=== PATIENT | female | born 1940 | race Caucasian/White ===

== ENCOUNTER → 2016-03-08 | Outpatient (CLI) | payer MEDICARE, OTHER ==
[~2016-03-08] MED LIST: ALL100T PO; AMIO100T3 PO; ASPI81TA13 PO; ATOR10TA52 PO; INSLISPI SC; INSUINJ32 SC; LEVO75TA6 PO; METO25TA62 PO; SPIR25TA89 PO; TEMA15CA PO; WARF1TAB36 PO
[2016-03-08 13:11] LABS: BUN/Creatinine Ratio 16.1; Calcium 9.6 mg/dL (8.5-10.1)
[2016-03-08 13:44] LABS: Potassium 5.8 mmol/L (3.5-5.1)
== END | disposition home or self-care (01) ==
LOC: LAB 12:16
PROVIDERS: ATTEND Internal Medicine
DX: N18.4 Chronic kidney disease, stage 4 (severe) (principal)
CPT/HCPCS: 36415; 80048

== ENCOUNTER 2016-03-09 18:36 | Inpatient (IN) | payer MEDICARE, OTHER ==
[~2016-03-09] VITALS: Ht 154.9 cm; Wt 60.5 kg
[~2016-03-09 18:36] MED LIST changes: -ALLO100T PO
[2016-03-09 19:39] LABS: Basophils # (auto) 0 uL; Basophils % (auto) 0.2 % (0.0-2.0); DEFINITIVE VIEW TRANSMISSION; Eosinophils # (auto) 0.1 uL; Eosinophils % (auto) 1.7 % (0.0-7.0); Hematocrit 40.2 % (36.0-46.0); Lymphocytes % (auto) 12.8 % (10.0-50.0); Mean Corpuscular Hgb Conc. 32.4 g/dL (32.0-36.0); Mean Corpuscular Volume 104.9 fL (80.0-100.0); Mean Platelet Volume 8.9 fL (7.4-10.4); Monocytes # (auto) 0.8 uL; Monocytes % (auto) 9.9 % (0.0-12.0); Neutrophils # (auto) 6.1 uL; Neutrophils % (auto) 75.4 % (37.0-80.0); Platelet Count (auto) 348 10^3/uL (140-450); Red Cell Distribution Width 17.7 % (11.6-16.0); White Blood Cell 8.1 10^3/uL (4.4-10.8)
[2016-03-09 19:51] LABS: Albumin 3.5 g/dL (3.4-5.0); BUN/Creatinine Ratio 16.8; Calcium 8.8 mg/dL (8.5-10.1)
[2016-03-09 19:53] LABS: Bilirubin, Total 0.5 mg/dL (0.2-1.0); Total Protein 7.8 g/dL (6.4-8.2)
[2016-03-09 19:59] LABS: Potassium 5.8 mmol/L (3.5-5.1)
[2016-03-09 20:11] LABS: Macrocytosis Slight; Platelet Estimate Adequate
[2016-03-09] MEDS ORDERED: SODIUM BICARBONATE 8.4% INJ 50ML SYRINGE IV ONE (22:00)
[2016-03-09] MEDS ORDERED: InsuLIN REG 1unit/0.01ml Soln (100units/ml) IV ONE (22:00)
[2016-03-09] MEDS ORDERED: SODIUM POLYSTYRENE SULF 15GM/60ML SUSP PO ONE (22:00)
[2016-03-09] MEDS ORDERED: DEXTROSE (50%) 50ML SYRG IV ONE (22:00)
[2016-03-09] MEDS ORDERED: ALBUTEROL SULF 2.5 MG/0.5ML(0.5%) NEB SOLN NEB ONE (22:00)
[2016-03-09] MEDS ORDERED: ALLO100T PO (22:59)
[2016-03-09] MEDS ORDERED: LEVO75TA6 PO (23:01)
[2016-03-09] MEDS ORDERED: SPIR25TA89 PO (23:02)
[2016-03-09] MEDS ORDERED: LACTULOSE 20Gm/30ML SOLN PO PRN (23:30)
[2016-03-09] MEDS ORDERED: TEMAZEPAM 15 MG CAP PO PRN (23:30)
[2016-03-09] MEDS ORDERED: DEXTROSE (50%) 50ML SYRG IV PRN (23:30)
[2016-03-09] MEDS: SODIUM CHLORIDE 0.9% 1,000 ML IV SCH (23:55)
[2016-03-09] MEDS: InsuLIN REG 1unit/0.01ml Soln (100units/ml) SC SCH (23:56)
[2016-03-10] VITALS (7 sets, daily range): BP systolic 109–146; BP diastolic 46–85
[2016-03-10] MEDS: ACCU-CHEK COMFORT CURVE STRIP VI SCH ×3 (00:03→12:35)
[2016-03-10] MEDS: InsuLIN REG 1unit/0.01ml Soln (100units/ml) SC SCH ×2 (05:58→12:00)
[2016-03-10 06:08] LABS: Basophils # (auto) 0 uL; Basophils % (auto) 0.2 % (0.0-2.0); DEFINITIVE VIEW TRANSMISSION; Eosinophils # (auto) 0 uL; Eosinophils % (auto) 0.7 % (0.0-7.0); Hematocrit 35.4 % (36.0-46.0); Hemoglobin 11.3 g/dL (12.2-16.2); Lymphocytes # (auto) 0.5 uL; Lymphocytes % (auto) 9.9 % (10.0-50.0); Mean Corpuscular Hemoglobin 33.5 pg (28.0-32.0); Mean Corpuscular Hgb Conc. 31.9 g/dL (32.0-36.0); Mean Corpuscular Volume 104.8 fL (80.0-100.0); Mean Platelet Volume 8.7 fL (7.4-10.4); Monocytes # (auto) 0.8 uL; Monocytes % (auto) 14.5 % (0.0-12.0); Neutrophils % (auto) 74.7 % (37.0-80.0); Platelet Count (auto) 305 10^3/uL (140-450); Red Cell Distribution Width 17.8 % (11.6-16.0); White Blood Cell 5.4 10^3/uL (4.4-10.8)
[2016-03-10 06:29] LABS: Partial Thromboplastin Time 39.9 sec (22.64-33.71)
[2016-03-10 06:32] LABS: Albumin 2.8 g/dL (3.4-5.0); BUN/Creatinine Ratio 17.6; Calcium 7.9 mg/dL (8.5-10.1); Potassium 4.3 mmol/L (3.5-5.1)
[2016-03-10 06:32] LABS: INR 2.46 (0.9-1.15); Prothrombin Time 25.3 sec (9.37-12.3)
[2016-03-10 06:35] LABS: Bilirubin, Total 0.4 mg/dL (0.2-1.0); Total Protein 6.2 g/dL (6.4-8.2)
[2016-03-10] MEDS ORDERED: LEVOTHYROXINE SODIUM 25 MCG TAB PO SCH (07:00)
[2016-03-10] MEDS ORDERED: ASPirin 81 mg TAB PO SCH (10:00)
[2016-03-10] MEDS ORDERED: ENOXAPARIN SOD 30 MG/0.3 ML SYRINGE SC SCH (10:00)
[2016-03-10] MEDS ORDERED: AMIODARONE HCL 200 MG TAB PO SCH (10:00)
[2016-03-10] MEDS ORDERED: PANTOPRAZOLE SODIUM 40 MG/10 ML VIAL IV SCH (10:00)
[2016-03-10] MEDS ORDERED: SPIRONOLACTONE 25 MG TAB PO SCH (10:00)
[2016-03-10] MEDS ORDERED: ALLOPURINOL 100 MG TAB PO SCH (10:00)
[2016-03-10] MEDS ORDERED: METOPROLOL TARTRATE 25 MG TAB PO SCH (10:00)
[2016-03-10] MEDS: SODIUM CHLORIDE 0.9% 1,000 ML IV SCH (12:35)
[2016-03-10] MEDS ORDERED: WARFARIN SODIUM 1 MG TAB PO SCH (17:00)
[2016-03-10] MEDS ORDERED: ATORVASTATIN 20 MG TAB PO SCH (22:00)
== END 2016-03-10 17:15 | disposition home or self-care (01) | DRG 640 ==
LOC: ER 18:38 → TELE 18:39 → TELE-WESTW 18:40
PROVIDERS: ADMIT Family Medicine; ATTEND Internal Medicine Pulmonary Disease
DX: E87.5 Hyperkalemia (principal); N17.0 Acute kidney failure with tubular necrosis; I13.0 Hypertensive heart and chronic kidney disease with heart failure and stage 1 through stage 4 chronic kidney disease, or unspecified chronic kidney disease; N18.4 Chronic kidney disease, stage 4 (severe); E87.1 Hypo-osmolality and hyponatremia; I25.10 Atherosclerotic heart disease of native coronary artery without angina pectoris; I50.9 Heart failure, unspecified; E11.22 Type 2 diabetes mellitus with diabetic chronic kidney disease; E11.65 Type 2 diabetes mellitus with hyperglycemia; E78.5 Hyperlipidemia, unspecified; E03.9 Hypothyroidism, unspecified; Z88.8 Allergy status to other drugs, medicaments and biological substances; Z88.0 Allergy status to penicillin; Z88.6 Allergy status to analgesic agent; Z88.2 Allergy status to sulfonamides; Z95.1 Presence of aortocoronary bypass graft; I25.2 Old myocardial infarction; Z90.710 Acquired absence of both cervix and uterus; Z87.440 Personal history of urinary (tract) infections; Z82.5 Family history of asthma and other chronic lower respiratory diseases; Z79.4 Long term (current) use of insulin; Z95.5 Presence of coronary angioplasty implant and graft
CPT/HCPCS: 36415; 80048; 80053; 82962; 83036; 85025; 85049; 85610; 85730; 93005; 94640; 96374; 96375; C9113; J1815

== ENCOUNTER → 2016-03-09 | Outpatient (CLI) | payer MEDICARE, OTHER ==
[~2016-03-09] MED LIST changes: +ALLO100T PO
[2016-03-09 12:59] LABS: BUN/Creatinine Ratio 17.4; Calcium 9.6 mg/dL (8.5-10.1)
[2016-03-09 13:29] LABS: Potassium 5.6 mmol/L (3.5-5.1)
== END | disposition home or self-care (01) ==
LOC: LAB 11:35
PROVIDERS: ATTEND Internal Medicine
DX: N18.4 Chronic kidney disease, stage 4 (severe) (principal); N39.0 Urinary tract infection, site not specified
CPT/HCPCS: 36415; 80048

== ENCOUNTER → 2016-03-15 | Outpatient (CLI) | payer MEDICARE, OTHER ==
[~2016-03-15] MED LIST changes: -ALL100T PO; +ALLO100T PO; -SPIR25TA89 PO
[2016-03-15 12:16] LABS: BUN/Creatinine Ratio 19.1; Calcium 9.2 mg/dL (8.5-10.1); Potassium 4.7 mmol/L (3.5-5.1)
== END | disposition home or self-care (01) ==
LOC: LAB 11:24
PROVIDERS: ATTEND Internal Medicine Pulmonary Disease
DX: Z00.00 Encounter for general adult medical examination without abnormal findings (principal)
CPT/HCPCS: 36415; 80048

== ENCOUNTER → 2016-06-06 | Outpatient (CLI) | payer MEDICARE, OTHER ==
[2016-06-06 11:10] LABS: Basophils # (auto) 0 uL; Basophils % (auto) 0.4 % (0.0-2.0); DEFINITIVE VIEW TRANSMISSION; Eosinophils # (auto) 0.1 uL; Eosinophils % (auto) 1.9 % (0.0-7.0); Hematocrit 44.1 % (36.0-46.0); Hemoglobin 14.6 g/dL (12.2-16.2); Lymphocytes % (auto) 14.8 % (10.0-50.0); Mean Corpuscular Hemoglobin 34.3 pg (28.0-32.0); Mean Corpuscular Volume 103.9 fL (80.0-100.0); Mean Platelet Volume 9.1 fL (7.4-10.4); Monocytes # (auto) 0.7 uL; Monocytes % (auto) 10.5 % (0.0-12.0); Neutrophils # (auto) 4.7 uL; Neutrophils % (auto) 72.4 % (37.0-80.0); Platelet Count (auto) 242 10^3/uL (140-450); Red Cell Distribution Width 15.4 % (11.6-16.0); White Blood Cell 6.5 10^3/uL (4.4-10.8)
[2016-06-06 11:39] LABS: Albumin 3.7 g/dL (3.4-5.0); BUN/Creatinine Ratio 23.6; Bilirubin, Total 0.4 mg/dL (0.2-1.0); Calcium 9.2 mg/dL (8.5-10.1); Magnesium 1.8 mg/dL (1.6-2.6); Phosphorus 3.5 mg/dL (2.5-4.90); Potassium 5.4 mmol/L (3.5-5.1); Total Protein 7.1 g/dL (6.4-8.2); Uric Acid 5.1 mg/dL (2.6-6.0)
[2016-06-06 12:22] LABS: Urine Protein/Creatinine Ratio 0.43
== END | disposition home or self-care (01) ==
LOC: LAB 10:46
PROVIDERS: ATTEND Internal Medicine Nephrology
DX: N18.3 Chronic kidney disease, stage 3 (moderate) (principal); D63.1 Anemia in chronic kidney disease; E21.3 Hyperparathyroidism, unspecified; E78.5 Hyperlipidemia, unspecified; M10.9 Gout, unspecified; R80.9 Proteinuria, unspecified; E55.9 Vitamin D deficiency, unspecified
CPT/HCPCS: 36415; 80053; 80061; 82306; 82570; 83036; 83735; 84100; 84156; 84550; 85025

== ENCOUNTER → 2016-08-17 | Outpatient (CLI) | payer MEDICARE, OTHER ==
[2016-08-17 14:13] LABS: Urine Protein/Creatinine Ratio 1.06
[2016-08-17 14:16] LABS: BUN/Creatinine Ratio 23.5; Bilirubin, Total 0.7 mg/dL (0.2-1.0); Calcium 8.9 mg/dL (8.5-10.1); Magnesium 1.9 mg/dL (1.6-2.6); Phosphorus 3.3 mg/dL (2.5-4.90); Potassium 4.3 mmol/L (3.5-5.1); Total Protein 7.3 g/dL (6.4-8.2); Uric Acid 5.6 mg/dL (2.6-6.0)
== END | disposition home or self-care (01) ==
LOC: LAB 13:26
PROVIDERS: ATTEND Internal Medicine Nephrology
DX: N18.4 Chronic kidney disease, stage 4 (severe) (principal); E83.39 Other disorders of phosphorus metabolism; E21.3 Hyperparathyroidism, unspecified; R80.9 Proteinuria, unspecified; M10.9 Gout, unspecified; R53.83 Other fatigue
CPT/HCPCS: 36415; 80053; 82570; 82607; 83735; 84100; 84156; 84439; 84443; 84550

== ENCOUNTER → 2016-11-22 | Outpatient (CLI) | payer MEDICARE, OTHER ==
[2016-11-22 13:11] LABS: Albumin 3.6 g/dL (3.4-5.0); BUN/Creatinine Ratio 16.4; Calcium 8.9 mg/dL (8.5-10.1); Magnesium 1.8 mg/dL (1.6-2.6); Potassium 4.2 mmol/L (3.5-5.1)
[2016-11-22 13:13] LABS: Bilirubin, Total 0.5 mg/dL (0.2-1.0); Total Protein 6.4 g/dL (6.4-8.2)
[2016-11-22 13:42] LABS: Urine Protein/Creatinine Ratio 0.75
== END | disposition home or self-care (01) ==
LOC: LAB 12:25
PROVIDERS: ATTEND Internal Medicine Nephrology
DX: N18.3 Chronic kidney disease, stage 3 (moderate) (principal); D63.1 Anemia in chronic kidney disease; E21.3 Hyperparathyroidism, unspecified; R80.9 Proteinuria, unspecified
CPT/HCPCS: 36415; 80053; 82043; 82570; 83735; 83970; 84156

== ENCOUNTER → 2016-12-05 | Outpatient (CLI) | payer MEDICARE, OTHER | END | disposition home or self-care (01) | LOC: LAB 15:34 | PROVIDERS: ATTEND Internal Medicine | DX: E11.9 Type 2 diabetes mellitus without complications (principal); E03.9 Hypothyroidism, unspecified; K80.20 Calculus of gallbladder without cholecystitis without obstruction | CPT/HCPCS: 36415; 82607; 83036; 84439; 84443 ==

== ENCOUNTER 2016-12-06 15:12 | Inpatient (IN) | payer MEDICARE, OTHER ==
[~2016-12-06] VITALS: Ht 154.9 cm; Wt 70.9 kg
[2016-12-06 16:29] LABS: Albumin 3.7 g/dL (3.4-5.0); Alkaline Phosphatase 106 U/L (45-117); Anion Gap 7 (5-15); Aspartate Aminotransferase 29 U/L (15-37); BUN/Creatinine Ratio 19.8; Bilirubin, Total 0.7 mg/dL (0.2-1.0); Blood Urea Nitrogen 37 mg/dL (7-18); Calcium 8.6 mg/dL (8.5-10.1); Carbon Dioxide 26 mmol/L (21-32); Chloride 105 mmol/L (98-107); GFR African American 33 mL/min; GFR Non-African American 28 mL/min; Glucose 125 mg/dL (74-106); Magnesium 1.6 mg/dL (1.6-2.6); Potassium 3.9 mmol/L (3.5-5.1); Sodium 138 mmol/L (136-145); Total Protein 7.2 g/dL (6.4-8.2)
[2016-12-06 16:36] LABS: Basophils # (auto) 0 uL; Eosinophils # (auto) 0 uL; Eosinophils % (auto) 0.2 % (0.0-7.0); Lymphocytes # (auto) 0.3 uL; Monocytes # (auto) 0.6 uL; Neutrophils # (auto) 9.5 uL
[2016-12-06 16:39] LABS: Basophils % (auto) 0.2 % (0.0-2.0); Hematocrit 40.9 % (36.0-46.0); Hemoglobin 13.7 g/dL (12.2-16.2); Lymphocytes % (auto) 3.1 % (10.0-50.0); Mean Corpuscular Hemoglobin 35.8 pg (28.0-32.0); Mean Corpuscular Hgb Conc. 33.6 g/dL (32.0-36.0); Mean Corpuscular Volume 106.5 fL (80.0-100.0); Mean Platelet Volume 9.2 fL (6.9-10.8); Monocytes % (auto) 5.4 % (0.0-12.0); Neutrophils % (auto) 91.1 % (37.0-80.0); Nucleated Red Blood Cells % 0.1 %; Platelet Count (auto) 199 10^3/uL (140-450); Red Cell Distribution Width 16.1 % (11.8-14.3); White Blood Cell 10.5 10^3/uL (4.4-10.8)
[2016-12-06] MEDS ORDERED: SODIUM CHLORIDE 0.9% 1,000 ML IV ONE (17:06)
[2016-12-06 18:11] LABS: Urine Bilirubin Negative (Negative); Urine Blood 1+ /uL (Negative); Urine Color Yellow (Yellow); Urine Glucose Normal (Normal); Urine Ketone Negative (Negative); Urine Nitrite POSITIVE (Negative); Urine RBC 9 /hpf (0 - 4); Urine Squamous Epithelial Cell FEW /hpf (<5); Urine Urobilinogen Normal (Negative); Urine WBC Clumps PRESENT /hpf (None Seen); Urine pH 5.5 (5.0-8.0)
[2016-12-06] MEDS ORDERED: LEVOFLOXACIN 500MG 100 ML IV ONE (18:30)
[2016-12-06] MEDS ORDERED: cefTRIAXone 1GM/50ML D5W 50 ML IV ONE (18:30)
[2016-12-06 19:18] LABS: Macrocytosis Moderate; Platelet Estimate Adequate
[2016-12-06] MEDS: SODIUM CHLORIDE 0.9% 1,000 ML IV SCH (21:48)
[2016-12-06] MEDS ORDERED: DEXTROSE (50%) 50ML SYRG IV PRN ×2 (22:00)
[2016-12-06] MEDS ORDERED: LACTULOSE 20Gm/30ML SOLN PO PRN (22:00)
[2016-12-06] MEDS ORDERED: ACETAMINOPHEN/CODEINE#3 (300/30mg) TAB PO PRN (22:00)
[2016-12-06] MEDS ORDERED: MORPHINE SULF INJ 2 MG/ML SYRINGE 1ML IV PRN (22:00)
[2016-12-06] MEDS ORDERED: NITROGLYCERIN 0.4 MG SL TAB SL PRN (22:00)
[2016-12-06] MEDS: ATORVASTATIN 20 MG TAB PO SCH (22:00)
[2016-12-06] MEDS ORDERED: ONDANSETRON HCL 4 MG/2 ML VIAL IV ONE (23:30)
[2016-12-07] MEDS: ACCU-CHEK COMFORT CURVE STRIP VI SCH ×4 (00:40→18:41)
[2016-12-07] MEDS: InsuLIN REG 1unit/0.01ml Soln (100units/ml) SC SCH ×4 (00:40→18:00)
[2016-12-07] MEDS: SODIUM CHLORIDE 0.9% 1,000 ML IV SCH ×2 (05:58→14:10)
[2016-12-07 06:50] LABS: Basophils # (auto) 0 uL; Eosinophils # (auto) 0 uL; Hematocrit 36.7 % (36.0-46.0); Lymphocytes # (auto) 0.6 uL; Monocytes # (auto) 1.6 uL
[2016-12-07 06:57] LABS: Basophils % (auto) 0.2 % (0.0-2.0); Hemoglobin 12.1 g/dL (12.2-16.2); Lymphocytes % (auto) 3.5 % (10.0-50.0); Mean Corpuscular Hemoglobin 35.4 pg (28.0-32.0); Mean Corpuscular Hgb Conc. 32.9 g/dL (32.0-36.0); Mean Corpuscular Volume 107.7 fL (80.0-100.0); Mean Platelet Volume 9.9 fL (6.9-10.8); Monocytes % (auto) 9.1 % (0.0-12.0); Neutrophils # (auto) 15.1 uL; Neutrophils % (auto) 87.2 % (37.0-80.0); Platelet Count (auto) 164 10^3/uL (140-450); White Blood Cell 17.4 10^3/uL (4.4-10.8)
[2016-12-07 07:01] LABS: INR 2.56 (0.9-1.15); Partial Thromboplastin Time 47.2 sec (22.64-33.71); Prothrombin Time 28.2 sec (9.37-12.3)
[2016-12-07] MEDS: LEVOTHYROXINE SODIUM 25 MCG TAB PO SCH (07:13)
[2016-12-07 07:32] LABS: Albumin 2.8 g/dL (3.4-5.0); BUN/Creatinine Ratio 19.5; Bilirubin, Total 0.6 mg/dL (0.2-1.0); Calcium 8.3 mg/dL (8.5-10.1); Potassium 4.8 mmol/L (3.5-5.1); Total Protein 5.8 g/dL (6.4-8.2)
[2016-12-07] MEDS ORDERED: cefTRIAXone 1GM/50ML D5W 50 ML IV SCH (09:00)
[2016-12-07] MEDS ORDERED: LEVOFLOXACIN 250MG 50 ML IV SCH (10:00)
[2016-12-07] MEDS ORDERED: METOPROLOL TARTRATE 25 MG TAB PO ONE (10:00)
[2016-12-07] MEDS ORDERED: ENOXAPARIN SOD 30 MG/0.3 ML SYRINGE SC SCH (10:00)
[2016-12-07] MEDS: ASPirin 81 mg TAB PO SCH (10:23)
[2016-12-07] MEDS: PANTOPRAZOLE 40 MG/10 ML VIAL IV SCH (10:23)
[2016-12-07] MEDS: AMIODARONE HCL 200 MG TAB PO SCH (10:24)
[2016-12-07] MEDS: ALLOPURINOL 100 MG TAB PO SCH (10:24)
[2016-12-07] MEDS ORDERED: ERTAPENEM SOD INJ 1 GM in SODIUM CHL 0.9% 50 ML IV ONE (10:30)
[2016-12-07] MEDS ORDERED: ONDANSETRON HCL 4 MG/2 ML VIAL IV PRN (11:00)
[2016-12-07] MEDS: ERTAPENEM SOD INJ 0.5 GM in SODIUM CHL 0.9% 50 ML IV SCH (13:06)
[2016-12-07 13:22] LABS: Platelet Estimate Adequate
[2016-12-07 13:24] LABS: Macrocytosis Moderate; Ovalocytes FEW
[2016-12-07] MEDS ORDERED: WARFARIN SODIUM 1 MG TAB PO SCH (17:00)
[2016-12-07 17:20] VITALS: BP 135/59
[2016-12-07 20:00] VITALS: BP 102/54
[2016-12-07] MEDS: ATORVASTATIN 20 MG TAB PO SCH (22:03)
[2016-12-07] MEDS: TEMAZEPAM 15 MG CAP PO PRN (22:04)
[2016-12-07 22:14] VITALS: BP 102/54
[2016-12-08] MEDS: ACCU-CHEK COMFORT CURVE STRIP VI SCH ×4 (00:17→16:49)
[2016-12-08] MEDS: SODIUM CHLORIDE 0.9% 1,000 ML IV SCH ×3 (01:28→21:24)
[2016-12-08 05:37] VITALS: BP 114/44
[2016-12-08] MEDS: InsuLIN REG 1unit/0.01ml Soln (100units/ml) SC SCH ×4 (06:00→16:50)
[2016-12-08 06:11] LABS: Basophils # (auto) 0 uL; Eosinophils # (auto) 0.1 uL; Hemoglobin 11.4 g/dL (12.2-16.2); Lymphocytes # (auto) 0.6 uL; Red Cell Distribution Width 16.2 % (11.8-14.3); White Blood Cell 7.8 10^3/uL (4.4-10.8)
[2016-12-08] MEDS: LEVOTHYROXINE SODIUM 25 MCG TAB PO SCH (06:11)
[2016-12-08 06:14] LABS: Basophils % (auto) 0.4 % (0.0-2.0); Eosinophils % (auto) 0.8 % (0.0-7.0); Hematocrit 34.8 % (36.0-46.0); Lymphocytes % (auto) 7.5 % (10.0-50.0); Mean Corpuscular Hemoglobin 35.2 pg (28.0-32.0); Mean Corpuscular Hgb Conc. 32.8 g/dL (32.0-36.0); Mean Corpuscular Volume 107.4 fL (80.0-100.0); Mean Platelet Volume 9.7 fL (6.9-10.8); Monocytes # (auto) 0.8 uL; Monocytes % (auto) 10.5 % (0.0-12.0); Neutrophils # (auto) 6.3 uL; Neutrophils % (auto) 80.8 % (37.0-80.0); Nucleated Red Blood Cells % 0.1 %; Platelet Count (auto) 124 10^3/uL (140-450)
[2016-12-08 06:25] LABS: INR 2.44 (0.9-1.15); Partial Thromboplastin Time 44.9 sec (22.64-33.71); Prothrombin Time 26.8 sec (9.37-12.3)
[2016-12-08 06:32] LABS: Albumin 2.4 g/dL (3.4-5.0); Calcium 7.9 mg/dL (8.5-10.1); Potassium 4.3 mmol/L (3.5-5.1)
[2016-12-08 06:37] LABS: Bilirubin, Total 0.4 mg/dL (0.2-1.0)
[2016-12-08 09:00] VITALS: BP 150/68
[2016-12-08] MEDS ORDERED: ERTAPENEM SOD INJ 1 GM in SODIUM CHL 0.9% 50 ML IV SCH (10:00)
[2016-12-08] MEDS: PANTOPRAZOLE 40 MG/10 ML VIAL IV SCH (10:00)
[2016-12-08] MEDS: ERTAPENEM SOD INJ 0.5 GM in SODIUM CHL 0.9% 50 ML IV SCH (10:00)
[2016-12-08] MEDS: AMIODARONE HCL 200 MG TAB PO SCH (10:44)
[2016-12-08] MEDS: ASPirin 81 mg TAB PO SCH (10:46)
[2016-12-08] MEDS: ALLOPURINOL 100 MG TAB PO SCH (10:48)
[2016-12-08 13:00] VITALS: BP 123/63
[2016-12-08 17:00] VITALS: BP 139/62
[2016-12-08 20:46] VITALS: BP 135/62
[2016-12-08] MEDS: ATORVASTATIN 20 MG TAB PO SCH (21:19)
[2016-12-08] MEDS: TEMAZEPAM 15 MG CAP PO PRN (21:20)
[2016-12-09] MEDS: ACCU-CHEK COMFORT CURVE STRIP VI SCH ×5 (00:29→23:36)
[2016-12-09 05:00] VITALS: BP 112/56
[2016-12-09] MEDS: InsuLIN REG 1unit/0.01ml Soln (100units/ml) SC SCH ×5 (05:51→23:37)
[2016-12-09] MEDS: LEVOTHYROXINE SODIUM 25 MCG TAB PO SCH (06:03)
[2016-12-09 06:50] LABS: Albumin 2.5 g/dL (3.4-5.0); Bilirubin, Total 0.5 mg/dL (0.2-1.0); Phosphorus 2.9 mg/dL (2.5-4.90); Potassium 4.1 mmol/L (3.5-5.1); Total Protein 5.4 g/dL (6.4-8.2)
[2016-12-09 09:00] VITALS: BP 137/66
[2016-12-09] MEDS: ASPirin 81 mg TAB PO SCH (09:50)
[2016-12-09] MEDS: SODIUM CHLORIDE 0.9% 1,000 ML IV SCH (09:51)
[2016-12-09] MEDS: AMIODARONE HCL 200 MG TAB PO SCH (09:51)
[2016-12-09] MEDS: ALLOPURINOL 100 MG TAB PO SCH (09:51)
[2016-12-09] MEDS ORDERED: ENOXAPARIN SOD 100 MG/1 ML SYRINGE SC SCH (10:00)
[2016-12-09] MEDS: ERTAPENEM SOD INJ 0.5 GM in SODIUM CHL 0.9% 50 ML IV SCH (11:00)
[2016-12-09 12:29] VITALS: BP 130/60
[2016-12-09 16:40] VITALS: BP 120/66
[2016-12-09 21:30] VITALS: BP 154/66
[2016-12-09] MEDS: ATORVASTATIN 20 MG TAB PO SCH (21:49)
[2016-12-09] MEDS: TEMAZEPAM 15 MG CAP PO PRN (21:50)
[2016-12-10] MEDS: SODIUM CHLORIDE 0.9% 1,000 ML IV SCH ×2 (00:21→12:50)
[2016-12-10 05:00] VITALS: BP 118/53
[2016-12-10] MEDS: InsuLIN REG 1unit/0.01ml Soln (100units/ml) SC SCH ×4 (06:00→23:57)
[2016-12-10] MEDS: ACCU-CHEK COMFORT CURVE STRIP VI SCH ×4 (06:01→23:57)
[2016-12-10 06:23] LABS: INR 1.72 (0.9-1.15); Prothrombin Time 18.8 sec (9.37-12.3)
[2016-12-10] MEDS: LEVOTHYROXINE SODIUM 25 MCG TAB PO SCH (06:26)
[2016-12-10 09:00] VITALS: BP 117/46
[2016-12-10] MEDS: ASPirin 81 mg TAB PO SCH (10:03)
[2016-12-10] MEDS: AMIODARONE HCL 200 MG TAB PO SCH (10:04)
[2016-12-10] MEDS: ALLOPURINOL 100 MG TAB PO SCH (10:05)
[2016-12-10] MEDS ORDERED: ENOXAPARIN SOD 100 MG/1 ML SYRINGE SC ONE (10:15)
[2016-12-10] MEDS ORDERED: LIDOCAINE 1% HCL (LOCAL ANESTH.) INJ 20ML MDV ID ONE (12:30)
[2016-12-10] MEDS: ERTAPENEM SOD INJ 0.5 GM in SODIUM CHL 0.9% 50 ML IV SCH (12:50)
[2016-12-10 13:00] VITALS: BP 152/60
[2016-12-10 17:00] VITALS: BP 134/65
[2016-12-10] MEDS ORDERED: WARFARIN SODIUM 1 MG TAB PO SCH (17:00)
[2016-12-10] MEDS: SODIUM CHLOR 0.9% PF (SALINE LOCK) 10ML VIAL IV SCH (21:23)
[2016-12-10] MEDS: ATORVASTATIN 20 MG TAB PO SCH (21:24)
[2016-12-10] MEDS: TEMAZEPAM 15 MG CAP PO PRN (21:24)
[2016-12-10 22:00] VITALS: BP 147/76
[2016-12-11 05:00] VITALS: BP 104/48
[2016-12-11] MEDS: SODIUM CHLORIDE 0.9% 1,000 ML IV SCH (05:38)
[2016-12-11] MEDS: ACCU-CHEK COMFORT CURVE STRIP VI SCH ×3 (05:38→17:31)
[2016-12-11] MEDS: LEVOTHYROXINE SODIUM 25 MCG TAB PO SCH (05:39)
[2016-12-11] MEDS: InsuLIN REG 1unit/0.01ml Soln (100units/ml) SC SCH ×3 (05:46→17:31)
[2016-12-11 06:09] LABS: Albumin 2.6 g/dL (3.4-5.0); BUN/Creatinine Ratio 16.9; Bilirubin, Total 0.5 mg/dL (0.2-1.0); Calcium 8.1 mg/dL (8.5-10.1); Potassium 3.5 mmol/L (3.5-5.1); Total Protein 5.3 g/dL (6.4-8.2)
[2016-12-11 07:00] VITALS: BP 119/48
[2016-12-11 08:57] LABS: INR 1.53 (0.9-1.15); Partial Thromboplastin Time 34.5 sec (22.64-33.71); Prothrombin Time 16.7 sec (9.37-12.3)
[2016-12-11] MEDS: AMIODARONE HCL 200 MG TAB PO SCH (09:31)
[2016-12-11] MEDS: ALLOPURINOL 100 MG TAB PO SCH (09:31)
[2016-12-11] MEDS: SODIUM CHLOR 0.9% PF (SALINE LOCK) 10ML VIAL IV SCH ×2 (09:32→22:12)
[2016-12-11] MEDS: ASPirin 81 mg TAB PO SCH (09:32)
[2016-12-11 09:52] LABS: Basophils # (auto) 0 uL; Eosinophils # (auto) 0.1 uL; Eosinophils % (auto) 1.5 % (0.0-7.0); Hemoglobin 12.4 g/dL (12.2-16.2); Lymphocytes # (auto) 0.5 uL; Mean Corpuscular Volume 105.9 fL (80.0-100.0); Monocytes # (auto) 0.6 uL; White Blood Cell 4.2 10^3/uL (4.4-10.8)
[2016-12-11 09:53] LABS: Basophils % (auto) 0.6 % (0.0-2.0); Hematocrit 37.7 % (36.0-46.0); Lymphocytes % (auto) 12.2 % (10.0-50.0); Mean Corpuscular Hemoglobin 34.8 pg (28.0-32.0); Mean Corpuscular Hgb Conc. 32.9 g/dL (32.0-36.0); Mean Platelet Volume 9.2 fL (6.9-10.8); Monocytes % (auto) 14.2 % (0.0-12.0); Neutrophils % (auto) 71.5 % (37.0-80.0); Nucleated Red Blood Cells % 0.1 %; Platelet Count (auto) 145 10^3/uL (140-450)
[2016-12-11] MEDS ORDERED: ERTAPENEM SOD 1 GM INJ VIAL IM SCH (10:00)
[2016-12-11] MEDS ORDERED: ENOXAPARIN SOD 100 MG/1 ML SYRINGE SC SCH (10:00)
[2016-12-11 13:00] VITALS: BP 162/67
[2016-12-11 17:00] VITALS: BP 157/78
[2016-12-11] MEDS: WARFARIN SODIUM 1 MG TAB PO ONE ×2 (17:31→18:01)
[2016-12-11 22:00] VITALS: BP 138/64
[2016-12-11] MEDS: ATORVASTATIN 20 MG TAB PO SCH (22:30)
[2016-12-11] MEDS: TEMAZEPAM 15 MG CAP PO PRN (22:30)
[2016-12-12] MEDS: ACCU-CHEK COMFORT CURVE STRIP VI SCH ×2 (00:21→06:00)
[2016-12-12 05:00] VITALS: BP 128/65
[2016-12-12 05:43] LABS: Basophils # (auto) 0 uL; Eosinophils # (auto) 0.1 uL; Lymphocytes # (auto) 0.6 uL; Mean Corpuscular Volume 105.1 fL (80.0-100.0); Monocytes # (auto) 0.6 uL; Neutrophils # (auto) 2.7 uL
[2016-12-12 05:47] LABS: Basophils % (auto) 0.5 % (0.0-2.0); Eosinophils % (auto) 2.4 % (0.0-7.0); Hematocrit 35.4 % (36.0-46.0); Mean Corpuscular Hemoglobin 35.6 pg (28.0-32.0); Mean Corpuscular Hgb Conc. 33.9 g/dL (32.0-36.0); Mean Platelet Volume 9.1 fL (6.9-10.8); Monocytes % (auto) 15.4 % (0.0-12.0); Neutrophils % (auto) 67.7 % (37.0-80.0); Nucleated Red Blood Cells % 0.2 %; Platelet Count (auto) 138 10^3/uL (140-450); Red Cell Distribution Width 15.7 % (11.8-14.3)
[2016-12-12 05:54] LABS: INR 1.52 (0.9-1.15); Partial Thromboplastin Time 35.7 sec (22.64-33.71); Prothrombin Time 16.6 sec (9.37-12.3)
[2016-12-12] MEDS: InsuLIN REG 1unit/0.01ml Soln (100units/ml) SC SCH ×2 (06:00)
[2016-12-12 06:26] LABS: Albumin 2.5 g/dL (3.4-5.0); Bilirubin, Total 0.5 mg/dL (0.2-1.0); Potassium 3.3 mmol/L (3.5-5.1); Total Protein 5.3 g/dL (6.4-8.2)
[2016-12-12] MEDS: LEVOTHYROXINE SODIUM 25 MCG TAB PO SCH (07:45)
[2016-12-12 09:00] VITALS: BP 135/60
[2016-12-12] MEDS: SODIUM CHLOR 0.9% PF (SALINE LOCK) 10ML VIAL IV SCH (10:00)
[2016-12-12] MEDS ORDERED: POTASSIUM CHL 20 Meq TABLET PO SCH (10:30)
[2016-12-12] MEDS: ASPirin 81 mg TAB PO SCH (10:37)
[2016-12-12] MEDS: ALLOPURINOL 100 MG TAB PO SCH (10:38)
[2016-12-12] MEDS: AMIODARONE HCL 200 MG TAB PO SCH (10:38)
[2016-12-12 11:01] VITALS: BP 135/60
[2016-12-12] MEDS ORDERED: ERTAPENEM SOD INJ 1 GM in SODIUM CHL 0.9% 50 ML IV SCH (12:00)
[2016-12-12] MEDS ORDERED: WARFARIN SODIUM 2.5 MG TAB PO ONE (17:00)
== END 2016-12-12 11:35 | disposition home health service (06) | DRG 871 ==
LOC: ER 15:19 → TELE 15:20 → TELE-WESTW 12-07 17:02 → WEST WING 12-11 17:49
PROVIDERS: ADMIT Family Medicine; ATTEND Internal Medicine
PROC: 02HV33Z Insertion of Infusion Device into Superior Vena Cava, Percutaneous Approach (ICD-10-PCS; principal; 2016-12-10)
DX: A41.9 Sepsis, unspecified organism (principal); N17.0 Acute kidney failure with tubular necrosis; N18.4 Chronic kidney disease, stage 4 (severe); E11.22 Type 2 diabetes mellitus with diabetic chronic kidney disease; I48.0 Paroxysmal atrial fibrillation; D68.32 Hemorrhagic disorder due to extrinsic circulating anticoagulants; I13.0 Hypertensive heart and chronic kidney disease with heart failure and stage 1 through stage 4 chronic kidney disease, or unspecified chronic kidney disease; I50.42 Chronic combined systolic (congestive) and diastolic (congestive) heart failure; N12 Tubulo-interstitial nephritis, not specified as acute or chronic; I25.10 Atherosclerotic heart disease of native coronary artery without angina pectoris; B96.20 Unspecified Escherichia coli [E. coli] as the cause of diseases classified elsewhere; E03.9 Hypothyroidism, unspecified; E87.6 Hypokalemia; K44.9 Diaphragmatic hernia without obstruction or gangrene; K80.20 Calculus of gallbladder without cholecystitis without obstruction; T45.515A Adverse effect of anticoagulants, initial encounter; Z16.12 Extended spectrum beta lactamase (ESBL) resistance; Z79.4 Long term (current) use of insulin; Z87.440 Personal history of urinary (tract) infections; Z95.2 Presence of prosthetic heart valve; Z88.0 Allergy status to penicillin; Z88.8 Allergy status to other drugs, medicaments and biological substances; Z95.1 Presence of aortocoronary bypass graft; Z90.710 Acquired absence of both cervix and uterus; Z95.0 Presence of cardiac pacemaker
CPT/HCPCS: 36415; 36569; 71010; 74176; 80053; 80061; 81001; 82607; 82962; 83036; 83735; 84100; 84439; 84443; 84484; 85025; 85610; 85652; 85730; 87040; 87086; 87088; 87186; 93005; 96361; 96365; 96367; 96375; C9113; J0696; J1335; J1815; J1956; J2405

== ENCOUNTER → 2017-02-02 | Outpatient (CLI) | payer MEDICARE, OTHER, BC ==
[2017-02-02 15:05] LABS: Albumin 3.7 g/dL (3.4-5.0); BUN/Creatinine Ratio 19.3; Bilirubin, Total 0.6 mg/dL (0.2-1.0); Calcium 8.9 mg/dL (8.5-10.1); Potassium 4.6 mmol/L (3.5-5.1); Total Protein 7.4 g/dL (6.4-8.2); Uric Acid 4.8 mg/dL (2.6-6.0)
[2017-02-02 15:16] LABS: Basophils # (auto) 0 uL; Basophils % (auto) 0.7 % (0.0-2.0); Eosinophils # (auto) 0 uL; Eosinophils % (auto) 0.7 % (0.0-7.0); Hematocrit 45.6 % (36.0-46.0); Hemoglobin 14.7 g/dL (12.2-16.2); Lymphocytes # (auto) 0.9 uL; Lymphocytes % (auto) 14.2 % (10.0-50.0); Mean Corpuscular Hemoglobin 34.7 pg (28.0-32.0); Mean Corpuscular Hgb Conc. 32.3 g/dL (32.0-36.0); Mean Corpuscular Volume 107.5 fL (80.0-100.0); Mean Platelet Volume 9.5 fL (6.9-10.8); Monocytes # (auto) 0.6 uL; Monocytes % (auto) 8.7 % (0.0-12.0); Neutrophils # (auto) 4.9 uL; Neutrophils % (auto) 75.7 % (37.0-80.0); Nucleated Red Blood Cells % 0.1 %; Platelet Count (auto) 265 10^3/uL (140-450); Red Cell Distribution Width 17.7 % (11.8-14.3); White Blood Cell 6.5 10^3/uL (4.4-10.8)
== END | disposition home or self-care (01) ==
LOC: LAB 14:12
PROVIDERS: ATTEND Internal Medicine Nephrology
DX: E11.22 Type 2 diabetes mellitus with diabetic chronic kidney disease (principal); D63.1 Anemia in chronic kidney disease; N18.3 Chronic kidney disease, stage 3 (moderate); E55.9 Vitamin D deficiency, unspecified; E78.5 Hyperlipidemia, unspecified; M10.9 Gout, unspecified; N39.0 Urinary tract infection, site not specified; E21.3 Hyperparathyroidism, unspecified; R80.9 Proteinuria, unspecified
CPT/HCPCS: 36415; 80053; 83036; 83970; 84550; 85025

== ENCOUNTER → 2017-04-30 | Outpatient (CLI) | payer MEDICARE, OTHER ==
[2017-04-30 13:59] LABS: BUN/Creatinine Ratio 19.1; Bilirubin, Total 0.8 mg/dL (0.2-1.0); Magnesium 1.9 mg/dL (1.6-2.6); Potassium 3.9 mmol/L (3.5-5.1); Total Protein 7.2 g/dL (6.4-8.2); Uric Acid 5.9 mg/dL (2.6-6.0)
== END | disposition home or self-care (01) ==
LOC: LAB 12:00
PROVIDERS: ATTEND Internal Medicine Nephrology
DX: E11.22 Type 2 diabetes mellitus with diabetic chronic kidney disease (principal); E11.21 Type 2 diabetes mellitus with diabetic nephropathy; N18.3 Chronic kidney disease, stage 3 (moderate); M10.9 Gout, unspecified; E83.49 Other disorders of magnesium metabolism
CPT/HCPCS: 36415; 80053; 83036; 83735; 84550

== ENCOUNTER 2017-05-03 17:33 | Inpatient (IN) | payer MEDICARE, OTHER ==
[~2017-05-03] VITALS: Ht 154.9 cm; Wt 64.0 kg
[2017-05-03 18:45] LABS: Urine Bacteria NONE SEEN /hpf (None Seen); Urine Blood Negative /uL (Negative); Urine Specific Gravity 1.018 (1.001-1.035); Urine WBC 2 /hpf (0 - 5)
[2017-05-03 19:10] LABS: Basophils # (auto) 0.1 uL; Eosinophils # (auto) 0.7 uL; Hemoglobin 12.7 g/dL (12.2-16.2); Mean Corpuscular Volume 106.1 fL (80.0-100.0)
[2017-05-03] MEDS ORDERED: SODIUM CHLORIDE 0.9% 1,000 ML IV ONE (19:12)
[2017-05-03 19:13] LABS: Basophils % (auto) 1.2 % (0.0-2.0); Eosinophils % (auto) 9.7 % (0.0-7.0); Hematocrit 38.8 % (36.0-46.0); Mean Corpuscular Hemoglobin 34.7 pg (28.0-32.0); Mean Corpuscular Hgb Conc. 32.8 g/dL (32.0-36.0); Monocytes % (auto) 13.2 % (0.0-12.0); Neutrophils # (auto) 4.8 uL; Neutrophils % (auto) 62.9 % (37.0-80.0); Nucleated Red Blood Cells % 0.7 %; Platelet Count (auto) 318 10^3/uL (140-450); Red Blood Cells 3.66 10^6/uL (4.0-5.20); White Blood Cell 7.6 10^3/uL (4.4-10.8)
[2017-05-03 19:22] LABS: Alanine Aminotransferase 75 U/L (13-56); Albumin 2.7 g/dL (3.4-5.0); Anion Gap 12 (5-15); Aspartate Aminotransferase 108 U/L (15-37); BUN/Creatinine Ratio 22.9; Blood Urea Nitrogen 46 mg/dL (7-18); Calcium 8.5 mg/dL (8.5-10.1); Carbon Dioxide 20 mmol/L (21-32); Chloride 106 mmol/L (98-107); GFR African American 31 mL/min; GFR Non-African American 25 mL/min; Glucose 131 mg/dL (74-106); Potassium 4.1 mmol/L (3.5-5.1); Sodium 138 mmol/L (136-145)
[2017-05-03 19:27] LABS: Alkaline Phosphatase 366 U/L (45-117); Bilirubin, Total 0.9 mg/dL (0.2-1.0); Total Protein 6.2 g/dL (6.4-8.2)
[2017-05-03] MEDS ORDERED: HYDROcodone-ACET 5/325MG TAB PO ONE ×2 (19:45)
[2017-05-03] MEDS ORDERED: FUROSEMIDE 40 MG/4 ML VIAL IV ONE (21:15)
[2017-05-03] MEDS ORDERED: ACETAMINOPHEN 325 MG TAB PO PRN (22:15)
[2017-05-03] MEDS ORDERED: NITROGLYCERIN 0.4 MG SL TAB SL PRN (22:15)
[2017-05-03] MEDS ORDERED: MORPHINE SULFATE 4 MG/ML SYR/VIAL IV PRN (22:15)
[2017-05-03] MEDS ORDERED: DEXTROSE (50%) 50ML SYRG IV PRN (22:15)
[2017-05-03] MEDS ORDERED: ONDANSETRON HCL 4 MG/2 ML VIAL IV PRN (22:15)
[2017-05-03] MEDS: ATORVASTATIN 20 MG TAB PO SCH (22:22)
[2017-05-03 22:35] LABS: INR 3.16 (0.9-1.15); Partial Thromboplastin Time 41.3 sec (22.64-33.71); Prothrombin Time 34.8 sec (9.37-12.3)
[2017-05-03 23:45] VITALS: BP 158/64
[2017-05-04] VITALS (7 sets, daily range): BP systolic 125–151; BP diastolic 56–71
[2017-05-04] MEDS: TEMAZEPAM 15 MG CAP PO PRN ×2 (00:06→21:33)
[2017-05-04 05:52] LABS: Basophils # (auto) 0.1 uL; Eosinophils # (auto) 0.7 uL; Lymphocytes # (auto) 0.9 uL; Monocytes # (auto) 0.8 uL; Nucleated Red Blood Cells % 0.5 %; White Blood Cell 6.4 10^3/uL (4.4-10.8)
[2017-05-04] MEDS: LEVOTHYROXINE SODIUM 88 MCG TAB PO SCH (05:54)
[2017-05-04] MEDS ORDERED: FUROSEMIDE 20 MG TAB PO SCH (06:00)
[2017-05-04] MEDS: ACCU-CHEK COMFORT CURVE STRIP VI SCH ×4 (06:00→18:58)
[2017-05-04] MEDS: InsuLIN REG 1unit/0.01ml Soln (100units/ml) SC SCH ×4 (06:00→18:00)
[2017-05-04 06:04] LABS: Basophils % (auto) 1.5 % (0.0-2.0); Eosinophils % (auto) 11.1 % (0.0-7.0); Hematocrit 38.7 % (36.0-46.0); Hemoglobin 12.7 g/dL (12.2-16.2); Lymphocytes % (auto) 14.3 % (10.0-50.0); Mean Corpuscular Hemoglobin 34.3 pg (28.0-32.0); Mean Corpuscular Hgb Conc. 32.9 g/dL (32.0-36.0); Mean Corpuscular Volume 104.4 fL (80.0-100.0); Monocytes % (auto) 12.9 % (0.0-12.0); Neutrophils # (auto) 3.8 uL; Neutrophils % (auto) 60.2 % (37.0-80.0); Platelet Count (auto) 285 10^3/uL (140-450); Red Blood Cells 3.71 10^6/uL (4.0-5.20); Red Cell Distribution Width 16.1 % (11.8-14.3)
[2017-05-04 06:11] LABS: Albumin 2.6 g/dL (3.4-5.0); BUN/Creatinine Ratio 23.2; Bilirubin, Total 0.9 mg/dL (0.2-1.0); Calcium 8.5 mg/dL (8.5-10.1); Potassium 3.5 mmol/L (3.5-5.1)
[2017-05-04 08:04] LABS: INR 3.01 (0.9-1.15); Partial Thromboplastin Time 41.5 sec (22.64-33.71); Prothrombin Time 33.2 sec (9.37-12.3)
[2017-05-04] MEDS ORDERED: ENOXAPARIN SOD 30 MG/0.3 ML SYRINGE SC SCH (10:00)
[2017-05-04] MEDS ORDERED: ASPirin 81 mg TAB PO SCH (10:00)
[2017-05-04] MEDS: ALLOPURINOL 100 MG TAB PO SCH (10:12)
[2017-05-04] MEDS: HYDROcodone-ACET 5/325MG TAB PO PRN ×2 (10:12→20:20)
[2017-05-04] MEDS: AMIODARONE HCL 200 MG TAB PO SCH (10:13)
[2017-05-04] MEDS: PANTOPRAZOLE 40 MG TAB PO SCH (10:13)
[2017-05-04] MEDS: METOPROLOL SUCCINATE XL 50 MG TAB PO SCH (10:19)
[2017-05-04] MEDS ORDERED: FUROSEMIDE 40 MG/4 ML VIAL IV ONE (12:15)
[2017-05-04] MEDS: ATORVASTATIN 20 MG TAB PO SCH (21:33)
[2017-05-05] VITALS (7 sets, daily range): BP systolic 78–138; BP diastolic 50–63
[2017-05-05] MEDS: ACCU-CHEK COMFORT CURVE STRIP VI SCH ×4 (00:21→18:10)
[2017-05-05] MEDS: InsuLIN REG 1unit/0.01ml Soln (100units/ml) SC SCH ×5 (00:39→23:39)
[2017-05-05] MEDS: LEVOTHYROXINE SODIUM 88 MCG TAB PO SCH (06:42)
[2017-05-05 07:33] LABS: Albumin 2.4 g/dL (3.4-5.0); BUN/Creatinine Ratio 26.7; Calcium 8.3 mg/dL (8.5-10.1); Potassium 3.5 mmol/L (3.5-5.1)
[2017-05-05 07:36] LABS: Bilirubin, Total 0.7 mg/dL (0.2-1.0); Total Protein 5.5 g/dL (6.4-8.2)
[2017-05-05 07:42] LABS: INR 3.77 (0.9-1.15); Partial Thromboplastin Time 47.1 sec (22.64-33.71); Prothrombin Time 41.7 sec (9.37-12.3)
[2017-05-05] MEDS: FUROSEMIDE 40 MG/4 ML VIAL IV SCH (10:00)
[2017-05-05] MEDS: PANTOPRAZOLE 40 MG TAB PO SCH (10:35)
[2017-05-05] MEDS: AMIODARONE HCL 200 MG TAB PO SCH (10:36)
[2017-05-05] MEDS: ALLOPURINOL 100 MG TAB PO SCH (10:36)
[2017-05-05] MEDS: METOPROLOL SUCCINATE XL 50 MG TAB PO SCH (10:37)
[2017-05-05] MEDS: HYDROcodone-ACET 5/325MG TAB PO PRN ×2 (10:39→21:45)
[2017-05-05] MEDS: TEMAZEPAM 15 MG CAP PO PRN (21:44)
[2017-05-05] MEDS: ATORVASTATIN 20 MG TAB PO SCH (21:45)
[2017-05-05] MEDS ORDERED: guaiFENesin-DM 100/10mg/5ml SYR PO PRN (23:15)
[2017-05-06 05:00] VITALS: BP 97/44
[2017-05-06] MEDS: InsuLIN REG 1unit/0.01ml Soln (100units/ml) SC SCH ×2 (06:00→11:46)
[2017-05-06] MEDS: ACCU-CHEK COMFORT CURVE STRIP VI SCH ×3 (06:15→11:45)
[2017-05-06] MEDS: LEVOTHYROXINE SODIUM 88 MCG TAB PO SCH (06:30)
[2017-05-06 08:00] VITALS: BP 117/49
[2017-05-06 08:00] LABS: INR 3.13 (0.9-1.15); Partial Thromboplastin Time 45.7 sec (22.64-33.71); Prothrombin Time 34.5 sec (9.37-12.3)
[2017-05-06 09:00] VITALS: BP 117/49
[2017-05-06] MEDS: FUROSEMIDE 40 MG/4 ML VIAL IV SCH (09:31)
[2017-05-06] MEDS: PANTOPRAZOLE 40 MG TAB PO SCH (09:32)
[2017-05-06] MEDS: AMIODARONE HCL 200 MG TAB PO SCH (09:32)
[2017-05-06] MEDS: ALLOPURINOL 100 MG TAB PO SCH (09:32)
[2017-05-06] MEDS: METOPROLOL SUCCINATE XL 50 MG TAB PO SCH (09:33)
[2017-05-06 12:24] VITALS: BP 117/49
[2017-05-06 13:00] VITALS: BP 123/55
== END 2017-05-06 16:15 | disposition home or self-care (01) | DRG 291 ==
LOC: EDBD 17:33 → ER 17:33 → TELE 17:34 → TELE-WESTW 23:20
PROVIDERS: ADMIT Nurse Practitioner; ATTEND Internal Medicine
DX: I13.0 Hypertensive heart and chronic kidney disease with heart failure and stage 1 through stage 4 chronic kidney disease, or unspecified chronic kidney disease (principal); I50.43 Acute on chronic combined systolic (congestive) and diastolic (congestive) heart failure; J96.00 Acute respiratory failure, unspecified whether with hypoxia or hypercapnia; N17.9 Acute kidney failure, unspecified; N18.4 Chronic kidney disease, stage 4 (severe); J98.11 Atelectasis; E11.22 Type 2 diabetes mellitus with diabetic chronic kidney disease; I48.91 Unspecified atrial fibrillation; I70.0 Atherosclerosis of aorta; I25.10 Atherosclerotic heart disease of native coronary artery without angina pectoris; Z83.3 Family history of diabetes mellitus; Z82.5 Family history of asthma and other chronic lower respiratory diseases; Z90.710 Acquired absence of both cervix and uterus; Z95.1 Presence of aortocoronary bypass graft; Z95.2 Presence of prosthetic heart valve; Z95.810 Presence of automatic (implantable) cardiac defibrillator; Z80.9 Family history of malignant neoplasm, unspecified; Z88.6 Allergy status to analgesic agent; Z88.8 Allergy status to other drugs, medicaments and biological substances; Z88.1 Allergy status to other antibiotic agents; Z88.0 Allergy status to penicillin; Z88.2 Allergy status to sulfonamides; Z79.899 Other long term (current) drug therapy; Z79.82 Long term (current) use of aspirin; Z79.01 Long term (current) use of anticoagulants
CPT/HCPCS: 36415; 71045; 76705; 80053; 81001; 82607; 82962; 83880; 84443; 84484; 85025; 85379; 85610; 85730; 87804; 93005; 93306; 96361; 96372; J1815

== ENCOUNTER → 2017-07-12 | Outpatient (CLI) | payer MEDICARE, OTHER ==
[~2017-07-12] MED LIST changes: +CHOL100079 PO; +CHOL50007 PO; -INSUINJ32 SC; +[UNRECOGNIZED DRUG - CODE] IV
[2017-07-12 16:48] LABS: Albumin 3.1 g/dL (3.4-5.0); BUN/Creatinine Ratio 20.7; Bilirubin, Total 1.4 mg/dL (0.2-1.0); Calcium 8.9 mg/dL (8.5-10.1); Magnesium 1.8 mg/dL (1.6-2.6); Phosphorus 3.1 mg/dL (2.5-4.90); Potassium 4.2 mmol/L (3.5-5.1); Total Protein 6.3 g/dL (6.4-8.2); Uric Acid 9.5 mg/dL (2.6-6.0)
[2017-07-13 18:26] LABS: Protein, Urine 158.1 mg/dL (0.0-11.9)
== END | disposition home or self-care (01) ==
LOC: LAB 15:44
PROVIDERS: ATTEND Internal Medicine Nephrology
DX: I13.0 Hypertensive heart and chronic kidney disease with heart failure and stage 1 through stage 4 chronic kidney disease, or unspecified chronic kidney disease (principal); N18.4 Chronic kidney disease, stage 4 (severe); I50.43 Acute on chronic combined systolic (congestive) and diastolic (congestive) heart failure; R80.9 Proteinuria, unspecified; M10.9 Gout, unspecified; E83.2 Disorders of zinc metabolism; E83.39 Other disorders of phosphorus metabolism
CPT/HCPCS: 36415; 80053; 82570; 83735; 83970; 84100; 84156; 84550

== ENCOUNTER → 2017-07-25 | Outpatient (CLI) | payer MEDICARE, OTHER ==
[~2017-07-25] MED LIST changes: -CHOL100079 PO; -CHOL50007 PO; -[UNRECOGNIZED DRUG - CODE] IV
[2017-07-25 14:58] LABS: Basophils # (auto) 0.1 uL; Eosinophils # (auto) 0.3 uL; Eosinophils % (auto) 3.5 % (0.0-7.0); Hematocrit 37.9 % (36.0-46.0); Lymphocytes # (auto) 0.8 uL; Monocytes # (auto) 0.7 uL
[2017-07-25 15:00] LABS: Basophils % (auto) 1.1 % (0.0-2.0); Hemoglobin 11.8 g/dL (12.2-16.2); Lymphocytes % (auto) 11.5 % (10.0-50.0); Mean Corpuscular Hemoglobin 32.8 pg (28.0-32.0); Mean Corpuscular Hgb Conc. 31.2 g/dL (32.0-36.0); Mean Corpuscular Volume 104.8 fL (80.0-100.0); Monocytes % (auto) 9.7 % (0.0-12.0); Neutrophils # (auto) 5.4 uL; Neutrophils % (auto) 74.2 % (37.0-80.0); Nucleated Red Blood Cells % 0.2 %; Platelet Count (auto) 233 10^3/uL (140-450); Red Blood Cells 3.61 10^6/uL (4.0-5.20); Red Cell Distribution Width 19.4 % (11.8-14.3); White Blood Cell 7.2 10^3/uL (4.4-10.8)
[2017-07-25 16:12] LABS: BUN/Creatinine Ratio 26.3; Calcium 8.3 mg/dL (8.5-10.1); Potassium 3.5 mmol/L (3.5-5.1)
== END | disposition home or self-care (01) ==
LOC: LAB 14:51
PROVIDERS: ATTEND Internal Medicine
DX: I13.0 Hypertensive heart and chronic kidney disease with heart failure and stage 1 through stage 4 chronic kidney disease, or unspecified chronic kidney disease (principal); E11.22 Type 2 diabetes mellitus with diabetic chronic kidney disease; N18.4 Chronic kidney disease, stage 4 (severe); I50.9 Heart failure, unspecified; Z79.899 Other long term (current) drug therapy; Z79.4 Long term (current) use of insulin
CPT/HCPCS: 36415; 80048; 83880; 85025

== ENCOUNTER → 2017-08-23 | Outpatient (CLI) | payer MEDICARE, OTHER ==
[~2017-08-23] MED LIST changes: +CHOL100079 PO; +CHOL50007 PO; +[UNRECOGNIZED DRUG - CODE] IV
[2017-08-23 14:11] LABS: Basophils # (auto) 0.1 uL; Basophils % (auto) 0.9 % (0.0-2.0); Eosinophils # (auto) 0.2 uL; Eosinophils % (auto) 2.3 % (0.0-7.0); Hemoglobin 11.9 g/dL (12.2-16.2); Lymphocytes # (auto) 1.1 uL; Mean Corpuscular Hemoglobin 31.6 pg (28.0-32.0); Mean Corpuscular Hgb Conc. 31.4 g/dL (32.0-36.0); Mean Corpuscular Volume 100.8 fL (80.0-100.0); Monocytes % (auto) 11.8 % (0.0-12.0); Neutrophils # (auto) 5.9 uL; Nucleated Red Blood Cells % 0.2 %; Platelet Count (auto) 244 10^3/uL (140-450); Red Blood Cells 3.77 10^6/uL (4.0-5.20); Red Cell Distribution Width 18.4 % (11.8-14.3); White Blood Cell 8.2 10^3/uL (4.4-10.8)
[2017-08-23 15:04] LABS: Albumin 3.2 g/dL (3.4-5.0); BUN/Creatinine Ratio 24.7; Bilirubin, Total 1.5 mg/dL (0.2-1.0); Calcium 8.4 mg/dL (8.5-10.1); Potassium 3.8 mmol/L (3.5-5.1); Total Protein 6.6 g/dL (6.4-8.2); Uric Acid 5.5 mg/dL (2.6-6.0)
== END | disposition home or self-care (01) ==
LOC: LAB 13:27
PROVIDERS: ATTEND Internal Medicine
DX: I13.0 Hypertensive heart and chronic kidney disease with heart failure and stage 1 through stage 4 chronic kidney disease, or unspecified chronic kidney disease (principal); E11.22 Type 2 diabetes mellitus with diabetic chronic kidney disease; I50.23 Acute on chronic systolic (congestive) heart failure; N18.4 Chronic kidney disease, stage 4 (severe); I25.10 Atherosclerotic heart disease of native coronary artery without angina pectoris; E78.5 Hyperlipidemia, unspecified; E03.9 Hypothyroidism, unspecified; Z79.82 Long term (current) use of aspirin; Z79.899 Other long term (current) drug therapy
CPT/HCPCS: 36415; 80053; 84550; 85025

== ENCOUNTER → 2017-10-09 | Outpatient (CLI) | payer MEDICARE, BC ==
[~2017-10-09] MED LIST changes: -CHOL100079 PO; -CHOL50007 PO; -[UNRECOGNIZED DRUG - CODE] IV
[2017-10-09 12:34] LABS: Basophils # (auto) 0.1 uL; Basophils % (auto) 1.2 % (0.0-2.0); Eosinophils # (auto) 0.4 uL; Eosinophils % (auto) 5.3 % (0.0-7.0); Hemoglobin 13.5 g/dL (12.2-16.2); Lymphocytes # (auto) 0.5 uL; Lymphocytes % (auto) 7.1 % (10.0-50.0); Mean Corpuscular Hemoglobin 33.2 pg (28.0-32.0); Mean Corpuscular Hgb Conc. 32.9 g/dL (32.0-36.0); Mean Corpuscular Volume 100.9 fL (80.0-100.0); Monocytes # (auto) 0.7 uL; Monocytes % (auto) 9.7 % (0.0-12.0); Neutrophils # (auto) 5.2 uL; Neutrophils % (auto) 76.7 % (37.0-80.0); Nucleated Red Blood Cells % 0.1 %; Platelet Count (auto) 234 10^3/uL (140-450); Red Blood Cells 4.06 10^6/uL (4.0-5.20); White Blood Cell 6.8 10^3/uL (4.4-10.8)
[2017-10-09 12:48] LABS: Red Cell Distribution Width 20.3 % (11.8-14.3)
[2017-10-09 13:01] LABS: BUN/Creatinine Ratio 21.6; Calcium 9.2 mg/dL (8.5-10.1); Phosphorus 4.1 mg/dL (2.5-4.90); Potassium 4.4 mmol/L (3.5-5.1); Uric Acid 7.7 mg/dL (2.6-6.0)
[2017-10-09 13:04] LABS: Urine Bacteria FEW /hpf (None Seen); Urine Blood Negative /uL (Negative); Urine Mucus FEW (None Seen); Urine Specific Gravity 1.013 (1.001-1.035); Urine WBC 4 /hpf (0 - 5)
== END | disposition home or self-care (01) ==
LOC: LAB 11:21
PROVIDERS: ATTEND Student in an Organized Health Care Education/Training Program
DX: E83.39 Other disorders of phosphorus metabolism (principal); I12.9 Hypertensive chronic kidney disease with stage 1 through stage 4 chronic kidney disease, or unspecified chronic kidney disease; E11.22 Type 2 diabetes mellitus with diabetic chronic kidney disease; N18.3 Chronic kidney disease, stage 3 (moderate); D63.1 Anemia in chronic kidney disease; M10.9 Gout, unspecified; R82.90 Unspecified abnormal findings in urine; E03.9 Hypothyroidism, unspecified
CPT/HCPCS: 36415; 80048; 81001; 84100; 84550; 85025

== ENCOUNTER → 2017-11-05 | Outpatient (CLI) | payer MEDICARE, BC ==
[~2017-11-05] MED LIST changes: +ASPI1TAB19 PO; -ASPI81TA13 PO; +HYDR-4683 PO; +LEVO125T7 PO
[2017-11-05 14:36] LABS: Protein, Urine 185.4 mg/dL (0.0-11.9)
[2017-11-05 14:37] LABS: Albumin 3.3 g/dL (3.4-5.0); BUN/Creatinine Ratio 21.3; Bilirubin, Total 0.9 mg/dL (0.2-1.0); Calcium 8.7 mg/dL (8.5-10.1); Phosphorus 3.8 mg/dL (2.5-4.90); Potassium 4.6 mmol/L (3.5-5.1); Total Protein 6.8 g/dL (6.4-8.2)
== END | disposition home or self-care (01) ==
LOC: LAB 13:34
PROVIDERS: ATTEND Internal Medicine Nephrology
DX: E11.21 Type 2 diabetes mellitus with diabetic nephropathy (principal); I12.9 Hypertensive chronic kidney disease with stage 1 through stage 4 chronic kidney disease, or unspecified chronic kidney disease; E11.22 Type 2 diabetes mellitus with diabetic chronic kidney disease; E11.65 Type 2 diabetes mellitus with hyperglycemia; N18.3 Chronic kidney disease, stage 3 (moderate); R80.9 Proteinuria, unspecified
CPT/HCPCS: 36415; 80053; 82570; 83036; 83970; 84100; 84156

== ENCOUNTER 2017-11-13 14:34 | Inpatient (IN) | payer MEDICARE, BC ==
[~2017-11-13] VITALS: Ht 152.4 cm; Wt 63.0 kg
[~2017-11-13 14:34] MED LIST changes: -HYDR-4683 PO; -LEVO125T7 PO
[2017-11-13 15:13] LABS: Eosinophils # (auto) 0.1 uL; Hemoglobin 13.3 g/dL (12.2-16.2); Lymphocytes # (auto) 0.6 uL; Nucleated Red Blood Cells % 0.4 %; White Blood Cell 5.7 10^3/uL (4.4-10.8)
[2017-11-13 15:15] LABS: Basophils # (auto) 0 uL; Basophils % (auto) 0.8 % (0.0-2.0); Eosinophils % (auto) 1.5 % (0.0-7.0); Hematocrit 41.1 % (36.0-46.0); Lymphocytes % (auto) 10.4 % (10.0-50.0); Mean Corpuscular Hemoglobin 34.8 pg (28.0-32.0); Mean Corpuscular Hgb Conc. 32.3 g/dL (32.0-36.0); Mean Corpuscular Volume 107.7 fL (80.0-100.0); Monocytes # (auto) 0.7 uL; Monocytes % (auto) 12.9 % (0.0-12.0); Neutrophils # (auto) 4.2 uL; Neutrophils % (auto) 74.4 % (37.0-80.0); Platelet Count (auto) 246 10^3/uL (140-450); Red Blood Cells 3.82 10^6/uL (4.0-5.20); Red Cell Distribution Width 19.9 % (11.8-14.3)
[2017-11-13 15:44] LABS: Alanine Aminotransferase 20 U/L (13-56); Albumin 3.2 g/dL (3.4-5.0); Alkaline Phosphatase 130 U/L (45-117); Anion Gap 6 (5-15); Aspartate Aminotransferase 19 U/L (15-37); Bilirubin, Total 0.8 mg/dL (0.2-1.0); Blood Urea Nitrogen 65 mg/dL (7-18); Calcium 8.6 mg/dL (8.5-10.1); Carbon Dioxide 20 mmol/L (21-32); Chloride 113 mmol/L (98-107); GFR African American 21 mL/min; GFR Non-African American 17 mL/min; Glucose 227 mg/dL (74-106); Magnesium 2.5 mg/dL (1.6-2.6); Potassium 4.9 mmol/L (3.5-5.1); Sodium 139 mmol/L (136-145); Total Protein 6.6 g/dL (6.4-8.2)
[2017-11-13] MEDS ORDERED: FUROSEMIDE 40 MG/4 ML VIAL IV ONE (16:30)
[2017-11-13] MEDS ORDERED: DEXTROSE (50%) 50ML SYRG IV PRN (17:00)
[2017-11-13] MEDS ORDERED: LORazepam 0.5 MG TAB PO PRN (17:00)
[2017-11-13] MEDS ORDERED: ALUM & MAG HYDROX-SIMETH LIQ(MAALOX) 30 ML PO ONE (17:00)
[2017-11-13] MEDS ORDERED: ACETAMINOPHEN 325 MG TAB PO PRN (17:00)
[2017-11-13] MEDS ORDERED: NITROGLYCERIN 0.4 MG SL TAB SL PRN ×2 (17:00)
[2017-11-13] MEDS ORDERED: ONDANSETRON HCL 4 MG/2 ML VIAL IV PRN (17:00)
[2017-11-13] MEDS ORDERED: MORPHINE SULF INJ 2 MG/ML SYRINGE 1ML IV PRN (17:00)
[2017-11-13] MEDS ORDERED: ZOLPIDEM TARTRATE 5 MG TAB PO PRN (17:00)
[2017-11-13] MEDS ORDERED: HYDROmorphone HCL 2 MG/ML VL IV PRN (17:15)
[2017-11-13] MEDS: ACCU-CHEK COMFORT CURVE STRIP VI SCH ×2 (17:17→22:00)
[2017-11-13 17:28] LABS: INR 3.77 (0.9-1.15); Partial Thromboplastin Time 45.4 sec (23.78-33.04); Prothrombin Time 37.4 sec (9.27-12.13)
[2017-11-13] MEDS: INSULIN LISPRO (HUMAN) 100 UNITS/ML ML SC SCH (17:30)
[2017-11-13] MEDS: InsuLIN REG 1unit/0.01ml Soln (100units/ml) SC SCH ×2 (17:31→22:00)
[2017-11-13] MEDS ORDERED: HYDR-4683 PO (18:19)
[2017-11-13 20:30] LABS: Urine Bacteria NONE SEEN /hpf (None Seen); Urine Blood 2+ /uL (Negative); Urine Specific Gravity 1.008 (1.001-1.035); Urine WBC 326 /hpf (0 - 5); Urine WBC Clumps PRESENT /hpf (None Seen)
[2017-11-13 21:00] VITALS: BP 118/68
[2017-11-13 22:00] VITALS: BP 118/68
[2017-11-13] MEDS: SODIUM CHLOR 0.9% PF (SALINE LOCK) 10ML VIAL/SYR IV SCH (22:13)
[2017-11-13] MEDS: ATORVASTATIN 20 MG TAB PO SCH (22:13)
[2017-11-13] MEDS: METOPROLOL TARTRATE 25 MG TAB PO SCH (22:14)
[2017-11-13] MEDS: ENALAPRIL MALEATE 2.5 MG TAB PO SCH (22:15)
[2017-11-14 05:00] VITALS: BP 126/53
[2017-11-14] MEDS: INSULIN LISPRO (HUMAN) 100 UNITS/ML ML SC SCH ×3 (07:00→17:00)
[2017-11-14] MEDS ORDERED: LEVOTHYROXINE SODIUM 25 MCG TAB PO SCH (07:00)
[2017-11-14] MEDS: InsuLIN REG 1unit/0.01ml Soln (100units/ml) SC SCH ×4 (07:00→21:32)
[2017-11-14] MEDS: SODIUM CHLOR 0.9% PF (SALINE LOCK) 10ML VIAL/SYR IV SCH ×3 (07:09→21:27)
[2017-11-14] MEDS: ACCU-CHEK COMFORT CURVE STRIP VI SCH ×4 (07:09→21:28)
[2017-11-14 07:39] LABS: Eosinophils # (auto) 0.1 uL; Eosinophils % (auto) 2.5 % (0.0-7.0); Hemoglobin 12.9 g/dL (12.2-16.2); Mean Corpuscular Hgb Conc. 31.9 g/dL (32.0-36.0); Monocytes # (auto) 0.7 uL; Neutrophils % (auto) 69.1 % (37.0-80.0); Red Blood Cells 3.75 10^6/uL (4.0-5.20)
[2017-11-14 07:42] LABS: Basophils # (auto) 0.1 uL; Hematocrit 40.4 % (36.0-46.0); Lymphocytes # (auto) 0.7 uL; Lymphocytes % (auto) 13.9 % (10.0-50.0); Mean Corpuscular Hemoglobin 34.4 pg (28.0-32.0); Mean Corpuscular Volume 107.6 fL (80.0-100.0); Monocytes % (auto) 13.5 % (0.0-12.0); Neutrophils # (auto) 3.5 uL; Nucleated Red Blood Cells % 0.4 %; Platelet Count (auto) 194 10^3/uL (140-450); Red Cell Distribution Width 19.6 % (11.8-14.3); White Blood Cell 5.1 10^3/uL (4.4-10.8)
[2017-11-14 07:51] LABS: INR 4.05 (0.9-1.15)
[2017-11-14 08:29] LABS: Albumin 3.2 g/dL (3.4-5.0); BUN/Creatinine Ratio 25.7; Bilirubin, Total 0.9 mg/dL (0.2-1.0); Calcium 8.7 mg/dL (8.5-10.1); Magnesium 2.2 mg/dL (1.6-2.6); Potassium 4.7 mmol/L (3.5-5.1); Total Protein 6.4 g/dL (6.4-8.2)
[2017-11-14 08:44] VITALS: BP 107/58
[2017-11-14] MEDS: ENALAPRIL MALEATE 2.5 MG TAB PO SCH ×2 (10:00→21:26)
[2017-11-14] MEDS: CLOPIDOGREL BISULFATE 75 MG TAB PO SCH (10:00)
[2017-11-14] MEDS: DOCUSATE SOD 100 MG CAP PO SCH (10:00)
[2017-11-14] MEDS: ASPirin 81 mg TAB PO SCH (10:00)
[2017-11-14] MEDS: METOPROLOL TARTRATE 25 MG TAB PO SCH ×2 (10:00→21:27)
[2017-11-14] MEDS: ALLOPURINOL 100 MG TAB PO SCH (10:50)
[2017-11-14] MEDS: AMIODARONE HCL 200 MG TAB PO SCH (10:54)
[2017-11-14 12:33] VITALS: BP 109/63
[2017-11-14] MEDS: NITROFURANTOIN (MONO) 100 mg CAP PO SCH ×2 (14:00→21:27)
[2017-11-14 16:58] VITALS: BP 101/48
[2017-11-14] MEDS: ATORVASTATIN 20 MG TAB PO SCH (21:24)
[2017-11-14 21:40] VITALS: BP 115/35
[2017-11-15 04:56] VITALS: BP 97/37
[2017-11-15] MEDS: SODIUM CHLOR 0.9% PF (SALINE LOCK) 10ML VIAL/SYR IV SCH ×2 (06:02→14:00)
[2017-11-15 06:10] LABS: INR 3.76 (0.9-1.15); Prothrombin Time 37.3 sec (9.27-12.13)
[2017-11-15 06:18] LABS: Eosinophils # (auto) 0.1 uL; Mean Corpuscular Hgb Conc. 32.5 g/dL (32.0-36.0); Monocytes # (auto) 0.7 uL; Neutrophils # (auto) 3.4 uL; Nucleated Red Blood Cells % 0.7 %
[2017-11-15 06:23] LABS: Basophils # (auto) 0.1 uL; Basophils % (auto) 1.2 % (0.0-2.0); Hematocrit 38.3 % (36.0-46.0); Hemoglobin 12.4 g/dL (12.2-16.2); Lymphocytes # (auto) 0.7 uL; Lymphocytes % (auto) 13.9 % (10.0-50.0); Mean Corpuscular Hemoglobin 35.1 pg (28.0-32.0); Mean Corpuscular Volume 108.1 fL (80.0-100.0); Monocytes % (auto) 13.4 % (0.0-12.0); Neutrophils % (auto) 69.5 % (37.0-80.0); Platelet Count (auto) 185 10^3/uL (140-450); Red Blood Cells 3.54 10^6/uL (4.0-5.20); Red Cell Distribution Width 19.1 % (11.8-14.3)
[2017-11-15] MEDS: ACCU-CHEK COMFORT CURVE STRIP VI SCH ×2 (06:36→11:46)
[2017-11-15] MEDS: InsuLIN REG 1unit/0.01ml Soln (100units/ml) SC SCH ×2 (06:36→11:46)
[2017-11-15] MEDS: INSULIN LISPRO (HUMAN) 100 UNITS/ML ML SC SCH ×2 (06:37→11:30)
[2017-11-15] MEDS ORDERED: LEVOTHYROXINE SODIUM 100 MCG TAB PO SCH (07:00)
[2017-11-15 07:41] VITALS: BP 97/40
[2017-11-15] MEDS ORDERED: LEVOTHYROXINE SODIUM 25 MCG TAB PO ONE (07:48)
[2017-11-15] MEDS: CLOPIDOGREL BISULFATE 75 MG TAB PO SCH (10:00)
[2017-11-15] MEDS: ASPirin 81 mg TAB PO SCH (10:00)
[2017-11-15] MEDS: METOPROLOL TARTRATE 25 MG TAB PO SCH (10:00)
[2017-11-15] MEDS: DOCUSATE SOD 100 MG CAP PO SCH (10:00)
[2017-11-15] MEDS: ENALAPRIL MALEATE 2.5 MG TAB PO SCH (10:00)
[2017-11-15] MEDS: ALLOPURINOL 100 MG TAB PO SCH (10:27)
[2017-11-15] MEDS: NITROFURANTOIN (MONO) 100 mg CAP PO SCH (10:27)
[2017-11-15] MEDS: AMIODARONE HCL 200 MG TAB PO SCH (10:28)
[2017-11-15 12:01] VITALS: BP 100/44
[2017-11-15 16:11] VITALS: BP 100/44
[2017-11-15 16:47] VITALS: BP 98/56
[2017-11-16] MEDS ORDERED: LEVOTHYROXINE SODIUM 25 MCG TAB PO SCH (07:00)
== END 2017-11-15 18:25 | disposition home or self-care (01) | DRG 291 ==
LOC: ER 14:39 → TELE 14:40 → TELE-EAST 20:46
PROVIDERS: ADMIT Internal Medicine; ATTEND Family Medicine
DX: I13.0 Hypertensive heart and chronic kidney disease with heart failure and stage 1 through stage 4 chronic kidney disease, or unspecified chronic kidney disease (principal); I50.43 Acute on chronic combined systolic (congestive) and diastolic (congestive) heart failure; N17.0 Acute kidney failure with tubular necrosis; N18.4 Chronic kidney disease, stage 4 (severe); N39.0 Urinary tract infection, site not specified; I48.92 Unspecified atrial flutter; I42.9 Cardiomyopathy, unspecified; R07.89 Other chest pain; E11.22 Type 2 diabetes mellitus with diabetic chronic kidney disease; D64.9 Anemia, unspecified; E03.9 Hypothyroidism, unspecified; I25.10 Atherosclerotic heart disease of native coronary artery without angina pectoris; E78.00 Pure hypercholesterolemia, unspecified; G89.29 Other chronic pain; E11.21 Type 2 diabetes mellitus with diabetic nephropathy; I48.91 Unspecified atrial fibrillation; I34.0 Nonrheumatic mitral (valve) insufficiency; N05.9 Unspecified nephritic syndrome with unspecified morphologic changes; M10.9 Gout, unspecified; M54.9 Dorsalgia, unspecified; Z88.8 Allergy status to other drugs, medicaments and biological substances; Z88.1 Allergy status to other antibiotic agents; Z88.0 Allergy status to penicillin; I25.2 Old myocardial infarction; Z79.01 Long term (current) use of anticoagulants; Z82.5 Family history of asthma and other chronic lower respiratory diseases; Z83.3 Family history of diabetes mellitus; Z90.710 Acquired absence of both cervix and uterus; Z95.1 Presence of aortocoronary bypass graft; Z95.5 Presence of coronary angioplasty implant and graft; Z88.2 Allergy status to sulfonamides; Z95.0 Presence of cardiac pacemaker; Z79.82 Long term (current) use of aspirin; Z79.899 Other long term (current) drug therapy
CPT/HCPCS: 36415; 71046; 76775; 80053; 80061; 81001; 82962; 83036; 83735; 83880; 84443; 84484; 85025; 85610; 85730; 87081; 93005; 96374; J1815

== ENCOUNTER 2017-11-23 12:20 | Inpatient (IN) | payer MEDICARE, OTHER ==
[~2017-11-23] VITALS: Ht 154.9 cm; Wt 65.2 kg
[2017-11-23 13:33] LABS: Urine Bacteria MANY /hpf (None Seen); Urine Blood 2+ /uL (Negative); Urine Specific Gravity 1.017 (1.001-1.035); Urine WBC 722 /hpf (0 - 5); Urine WBC Clumps PRESENT /hpf (None Seen)
[2017-11-23 14:14] LABS: Albumin 3.3 g/dL (3.4-5.0); Anion Gap 10 (5-15); Calcium 8.8 mg/dL (8.5-10.1); Carbon Dioxide 18 mmol/L (21-32); Chloride 112 mmol/L (98-107); Glucose 183 mg/dL (74-106); Sodium 140 mmol/L (136-145)
[2017-11-23 14:16] LABS: Aspartate Aminotransferase 23 U/L (15-37); BUN/Creatinine Ratio 29.8; GFR African American 19 mL/min; GFR Non-African American 15 mL/min
[2017-11-23] MEDS ORDERED: SODIUM CHLORIDE 0.9% 1,000 ML IVB ONE (14:20)
[2017-11-23 14:22] LABS: Alanine Aminotransferase 22 U/L (13-56); Alkaline Phosphatase 102 U/L (45-117); Bilirubin, Total 0.8 mg/dL (0.2-1.0); Blood Urea Nitrogen 92 mg/dL (7-18); Total Protein 6.7 g/dL (6.4-8.2)
[2017-11-23] MEDS ORDERED: cefTRIAXone 1GM/10ml IVPUSH 10 ML IV ONE (14:30)
[2017-11-23] MEDS ORDERED: SODIUM CHLORIDE 0.9% 500 ML IV ONE (14:30)
[2017-11-23] MEDS ORDERED: NITROGLYCERIN 0.4 MG SL TAB SL PRN (15:00)
[2017-11-23 15:03] LABS: INR 1.77 (0.9-1.15); Partial Thromboplastin Time 26.4 sec (23.78-33.04); Prothrombin Time 18.3 sec (9.27-12.13)
[2017-11-23] MEDS ORDERED: LACTULOSE 20Gm/30ML SOLN PO PRN (15:15)
[2017-11-23] MEDS ORDERED: ACETAMINOPHEN 500 MG TAB PO PRN (15:15)
[2017-11-23] MEDS ORDERED: LORazepam 0.5 MG TAB PO PRN (15:15)
[2017-11-23] MEDS ORDERED: PIPERACILLIN-TAZOB 3.375GM 100 ML IV ONE (15:15)
[2017-11-23 15:27] LABS: Basophils # (auto) 0 uL; Eosinophils # (auto) 0.1 uL; Hemoglobin 13.3 g/dL (12.2-16.2); Neutrophils # (auto) 4.4 uL
[2017-11-23 15:29] LABS: Basophils % (auto) 0.6 % (0.0-2.0); Eosinophils % (auto) 0.9 % (0.0-7.0); Hematocrit 41.7 % (36.0-46.0); Lymphocytes # (auto) 0.7 uL; Lymphocytes % (auto) 11.6 % (10.0-50.0); Mean Corpuscular Hemoglobin 34.9 pg (28.0-32.0); Mean Corpuscular Hgb Conc. 31.9 g/dL (32.0-36.0); Mean Corpuscular Volume 109.5 fL (80.0-100.0); Monocytes # (auto) 0.9 uL; Monocytes % (auto) 14.3 % (0.0-12.0); Neutrophils % (auto) 72.6 % (37.0-80.0); Nucleated Red Blood Cells % 0.4 %; Platelet Count (auto) 164 10^3/uL (140-450); Red Cell Distribution Width 19.2 % (11.8-14.3); White Blood Cell 6.1 10^3/uL (4.4-10.8)
[2017-11-23 15:40] LABS: Lactic Acid w/Reflex 2.1 mmol/L (0.4-2.0)
[2017-11-23] MEDS ORDERED: WARFARIN SODIUM 1 MG TAB PO ONE (17:00)
[2017-11-23] MEDS ORDERED: ERTAPENEM SOD INJ 1 GM in SODIUM CHL 0.9% 50 ML IV ONE (17:00)
[2017-11-23] MEDS ORDERED: LEVO125T7 PO (18:26)
[2017-11-23] MEDS ORDERED: HYDR-4683 PO (18:26)
[2017-11-23 18:27] VITALS: BP 114/77
[2017-11-23] MEDS ORDERED: FUROSEMIDE 40 MG/4 ML VIAL IV ONE (19:00)
[2017-11-23] MEDS: HYDROcodone-ACET 5/325MG TAB PO PRN (21:03)
[2017-11-23] MEDS: ATORVASTATIN 20 MG TAB PO SCH (21:04)
[2017-11-23 22:00] VITALS: BP 114/57
[2017-11-23] MEDS ORDERED: TEMAZEPAM 15 MG CAP PO SCH (22:00)
[2017-11-24] MEDS: HYDROcodone-ACET 5/325MG TAB PO PRN ×2 (04:28→21:00)
[2017-11-24 05:00] VITALS: BP 105/60
[2017-11-24 06:16] LABS: INR 2.16 (0.9-1.15); Prothrombin Time 22.1 sec (9.27-12.13)
[2017-11-24 06:17] LABS: Albumin 2.7 g/dL (3.4-5.0); BUN/Creatinine Ratio 32.9; Bilirubin, Total 0.6 mg/dL (0.2-1.0); Calcium 8.5 mg/dL (8.5-10.1); Potassium 4.5 mmol/L (3.5-5.1); Total Protein 5.5 g/dL (6.4-8.2)
[2017-11-24] MEDS: LEVOTHYROXINE SODIUM 25 MCG TAB PO SCH (06:40)
[2017-11-24 08:28] VITALS: BP 120/56
[2017-11-24] MEDS: ERTAPENEM SOD INJ 0.5 GM in SODIUM CHL 0.9% 50 ML IV SCH (10:00)
[2017-11-24] MEDS: METOPROLOL SUCCINATE XL 50 MG TAB PO SCH (10:00)
[2017-11-24] MEDS: FUROSEMIDE 40 MG/4 ML VIAL IV SCH (10:03)
[2017-11-24] MEDS: NITROGLYCERIN 0.2MG/HR TOPICAL PATCH TD SCH (10:03)
[2017-11-24] MEDS: ASPirin-EC 81 mg tab PO SCH (10:04)
[2017-11-24] MEDS: ALLOPURINOL 100 MG TAB PO SCH (10:04)
[2017-11-24] MEDS: PANTOPRAZOLE 40 MG TAB PO SCH (10:04)
[2017-11-24] MEDS: AMIODARONE HCL 200 MG TAB PO SCH (10:05)
[2017-11-24 12:30] VITALS: BP 108/53
[2017-11-24 16:33] VITALS: BP 114/62
[2017-11-24] MEDS ORDERED: WARFARIN SODIUM 1 MG TAB PO ONE (17:00)
[2017-11-24 20:00] VITALS: BP 91/36
[2017-11-24] MEDS: ATORVASTATIN 20 MG TAB PO SCH (21:35)
[2017-11-24] MEDS: TEMAZEPAM 15 MG CAP PO PRN (21:36)
[2017-11-24 21:58] VITALS: BP 91/36
[2017-11-25] VITALS (7 sets, daily range): BP systolic 82–116; BP diastolic 42–59
[2017-11-25] MEDS: HYDROcodone-ACET 5/325MG TAB PO PRN ×2 (06:08→21:12)
[2017-11-25] MEDS: LEVOTHYROXINE SODIUM 25 MCG TAB PO SCH (06:36)
[2017-11-25 06:51] LABS: Basophils # (auto) 0 uL; Eosinophils # (auto) 0.2 uL; Monocytes # (auto) 0.6 uL; White Blood Cell 4.8 10^3/uL (4.4-10.8)
[2017-11-25 06:53] LABS: Basophils % (auto) 0.9 % (0.0-2.0); Eosinophils % (auto) 3.3 % (0.0-7.0); Hematocrit 37.2 % (36.0-46.0); Hemoglobin 12.3 g/dL (12.2-16.2); Lymphocytes # (auto) 0.7 uL; Lymphocytes % (auto) 14.5 % (10.0-50.0); Mean Corpuscular Hemoglobin 36.1 pg (28.0-32.0); Mean Corpuscular Hgb Conc. 33.2 g/dL (32.0-36.0); Mean Corpuscular Volume 108.5 fL (80.0-100.0); Monocytes % (auto) 12.5 % (0.0-12.0); Neutrophils # (auto) 3.3 uL; Neutrophils % (auto) 68.8 % (37.0-80.0); Platelet Count (auto) 148 10^3/uL (140-450); Red Blood Cells 3.42 10^6/uL (4.0-5.20); Red Cell Distribution Width 18.7 % (11.8-14.3)
[2017-11-25 06:58] LABS: Albumin 2.7 g/dL (3.4-5.0); Potassium 4.5 mmol/L (3.5-5.1)
[2017-11-25 06:59] LABS: INR 2.18 (0.9-1.15); Prothrombin Time 22.3 sec (9.27-12.13)
[2017-11-25 07:00] LABS: BUN/Creatinine Ratio 29.2
[2017-11-25 07:02] LABS: Bilirubin, Total 0.6 mg/dL (0.2-1.0); Total Protein 5.5 g/dL (6.4-8.2)
[2017-11-25] MEDS: NITROGLYCERIN 0.2MG/HR TOPICAL PATCH TD SCH (10:00)
[2017-11-25] MEDS: FUROSEMIDE 40 MG/4 ML VIAL IV SCH (10:00)
[2017-11-25] MEDS: METOPROLOL SUCCINATE XL 50 MG TAB PO SCH (10:00)
[2017-11-25] MEDS: PANTOPRAZOLE 40 MG TAB PO SCH (10:16)
[2017-11-25] MEDS: ERTAPENEM SOD INJ 0.5 GM in SODIUM CHL 0.9% 50 ML IV SCH (10:16)
[2017-11-25] MEDS: ASPirin-EC 81 mg tab PO SCH (10:16)
[2017-11-25] MEDS: AMIODARONE HCL 200 MG TAB PO SCH (10:20)
[2017-11-25] MEDS: ALLOPURINOL 100 MG TAB PO SCH (10:21)
[2017-11-25] MEDS ORDERED: WARFARIN SODIUM 1 MG TAB PO ONE (17:00)
[2017-11-25] MEDS: ATORVASTATIN 20 MG TAB PO SCH (22:10)
[2017-11-26 05:13] VITALS: BP 109/58
[2017-11-26 05:36] LABS: INR 2.28 (0.9-1.15); Partial Thromboplastin Time 40.4 sec (23.78-33.04); Prothrombin Time 23.3 sec (9.27-12.13)
[2017-11-26 05:50] LABS: Potassium 4.6 mmol/L (3.5-5.1)
[2017-11-26 05:55] LABS: Albumin 2.7 g/dL (3.4-5.0); BUN/Creatinine Ratio 28.9; Calcium 7.9 mg/dL (8.5-10.1)
[2017-11-26 05:58] LABS: Bilirubin, Total 0.6 mg/dL (0.2-1.0); Total Protein 5.5 g/dL (6.4-8.2)
[2017-11-26] MEDS: LEVOTHYROXINE SODIUM 25 MCG TAB PO SCH (07:00)
[2017-11-26 09:10] VITALS: BP 130/69
[2017-11-26] MEDS: FUROSEMIDE 40 MG/4 ML VIAL IV SCH (10:28)
[2017-11-26] MEDS: ERTAPENEM SOD INJ 0.5 GM in SODIUM CHL 0.9% 50 ML IV SCH (10:28)
[2017-11-26] MEDS: AMIODARONE HCL 200 MG TAB PO SCH (10:29)
[2017-11-26] MEDS: PANTOPRAZOLE 40 MG TAB PO SCH (10:29)
[2017-11-26] MEDS: ASPirin-EC 81 mg tab PO SCH (10:29)
[2017-11-26] MEDS: METOPROLOL SUCCINATE XL 50 MG TAB PO SCH (10:31)
[2017-11-26] MEDS: ALLOPURINOL 100 MG TAB PO SCH (10:31)
[2017-11-26] MEDS: NITROGLYCERIN 0.2MG/HR TOPICAL PATCH TD SCH (10:32)
[2017-11-26 13:00] VITALS: BP 128/74
[2017-11-26] MEDS ORDERED: WARFARIN SODIUM 1 MG TAB PO ONE (17:00)
[2017-11-26 17:07] VITALS: BP 105/53
[2017-11-26] MEDS: HYDROcodone-ACET 5/325MG TAB PO PRN (17:22)
[2017-11-26 20:00] VITALS: BP 107/64
[2017-11-26] MEDS: ATORVASTATIN 20 MG TAB PO SCH (21:46)
[2017-11-26] MEDS: TEMAZEPAM 15 MG CAP PO PRN (21:46)
[2017-11-26 22:00] VITALS: BP 107/64
[2017-11-27] VITALS (7 sets, daily range): BP systolic 87–122; BP diastolic 50–90
[2017-11-27 06:15] LABS: INR 2.45 (0.9-1.15); Prothrombin Time 24.9 sec (9.27-12.13)
[2017-11-27] MEDS: LEVOTHYROXINE SODIUM 25 MCG TAB PO SCH (06:32)
[2017-11-27] MEDS: METOPROLOL SUCCINATE XL 50 MG TAB PO SCH (09:24)
[2017-11-27] MEDS: PANTOPRAZOLE 40 MG TAB PO SCH (09:24)
[2017-11-27] MEDS: ALLOPURINOL 100 MG TAB PO SCH (09:24)
[2017-11-27] MEDS: ASPirin-EC 81 mg tab PO SCH (09:24)
[2017-11-27] MEDS: AMIODARONE HCL 200 MG TAB PO SCH (09:25)
[2017-11-27] MEDS: HYDROcodone-ACET 5/325MG TAB PO PRN ×2 (09:25→21:48)
[2017-11-27] MEDS: NITROGLYCERIN 0.2MG/HR TOPICAL PATCH TD SCH (09:25)
[2017-11-27 13:28] LABS: Phosphorus 4.5 mg/dL (2.5-4.90); Uric Acid 7.2 mg/dL (2.6-6.0)
[2017-11-27] MEDS: ERTAPENEM SOD INJ 0.5 GM in SODIUM CHL 0.9% 50 ML IV SCH (14:30)
[2017-11-27] MEDS: FUROSEMIDE 40 MG/4 ML VIAL IV SCH (16:14)
[2017-11-27] MEDS: SODIUM BICARBONATE 650 MG TAB PO SCH ×2 (16:14→21:48)
[2017-11-27] MEDS ORDERED: WARFARIN SODIUM 1 MG TAB PO ONE (17:00)
[2017-11-27 21:34] LABS: Protein, Urine 14.3 mg/dL (0.0-11.9)
[2017-11-27] MEDS: ATORVASTATIN 20 MG TAB PO SCH (21:48)
[2017-11-27] MEDS: TEMAZEPAM 15 MG CAP PO PRN (21:48)
[2017-11-28 05:42] LABS: Eosinophils # (auto) 0.2 uL; Lymphocytes # (auto) 0.7 uL; White Blood Cell 4.8 10^3/uL (4.4-10.8)
[2017-11-28 05:46] LABS: Basophils # (auto) 0.1 uL; Basophils % (auto) 1.2 % (0.0-2.0); Hematocrit 35.6 % (36.0-46.0); Hemoglobin 11.8 g/dL (12.2-16.2); Lymphocytes % (auto) 15.1 % (10.0-50.0); Mean Corpuscular Hemoglobin 35.8 pg (28.0-32.0); Mean Corpuscular Hgb Conc. 33.2 g/dL (32.0-36.0); Monocytes # (auto) 0.7 uL; Monocytes % (auto) 13.6 % (0.0-12.0); Neutrophils # (auto) 3.1 uL; Neutrophils % (auto) 65.1 % (37.0-80.0); Nucleated Red Blood Cells % 0.7 %; Platelet Count (auto) 138 10^3/uL (140-450); Red Cell Distribution Width 18.7 % (11.8-14.3)
[2017-11-28] MEDS: SODIUM BICARBONATE 650 MG TAB PO SCH ×3 (05:49→21:01)
[2017-11-28 05:58] LABS: INR 2.77 (0.9-1.15); Partial Thromboplastin Time 42.2 sec (23.78-33.04)
[2017-11-28 06:17] LABS: Albumin 2.7 g/dL (3.4-5.0); BUN/Creatinine Ratio 30.1; Bilirubin, Total 0.7 mg/dL (0.2-1.0); Calcium 8.2 mg/dL (8.5-10.1); Potassium 4.2 mmol/L (3.5-5.1); Total Protein 5.4 g/dL (6.4-8.2)
[2017-11-28] MEDS: LEVOTHYROXINE SODIUM 25 MCG TAB PO SCH (06:35)
[2017-11-28 09:00] VITALS: BP 102/41
[2017-11-28] MEDS: FUROSEMIDE 40 MG/4 ML VIAL IV SCH (10:00)
[2017-11-28] MEDS: NITROGLYCERIN 0.2MG/HR TOPICAL PATCH TD SCH (10:00)
[2017-11-28] MEDS: PANTOPRAZOLE 40 MG TAB PO SCH (10:14)
[2017-11-28] MEDS: ALLOPURINOL 100 MG TAB PO SCH (10:14)
[2017-11-28] MEDS: METOPROLOL SUCCINATE XL 50 MG TAB PO SCH (10:14)
[2017-11-28] MEDS: ASPirin-EC 81 mg tab PO SCH (10:14)
[2017-11-28] MEDS: ERTAPENEM SOD INJ 0.5 GM in SODIUM CHL 0.9% 50 ML IV SCH (10:14)
[2017-11-28] MEDS: AMIODARONE HCL 200 MG TAB PO SCH (10:15)
[2017-11-28 13:00] VITALS: BP 97/34
[2017-11-28 17:00] VITALS: BP 81/34
[2017-11-28 20:00] VITALS: BP 101/84
[2017-11-28] MEDS: ATORVASTATIN 20 MG TAB PO SCH (21:01)
[2017-11-28] MEDS: TEMAZEPAM 15 MG CAP PO PRN (21:01)
[2017-11-28] MEDS: HYDROcodone-ACET 5/325MG TAB PO PRN (21:23)
[2017-11-28 21:30] VITALS: BP 101/34
[2017-11-29 05:00] VITALS: BP 93/43
[2017-11-29] MEDS: SODIUM BICARBONATE 650 MG TAB PO SCH ×3 (06:05→21:22)
[2017-11-29] MEDS: LEVOTHYROXINE SODIUM 25 MCG TAB PO SCH (06:06)
[2017-11-29 09:00] VITALS: BP 94/40
[2017-11-29] MEDS: METOPROLOL SUCCINATE XL 50 MG TAB PO SCH (10:00)
[2017-11-29] MEDS: NITROGLYCERIN 0.2MG/HR TOPICAL PATCH TD SCH (10:00)
[2017-11-29] MEDS: FUROSEMIDE 40 MG/4 ML VIAL IV SCH (10:00)
[2017-11-29] MEDS: ASPirin-EC 81 mg tab PO SCH (10:23)
[2017-11-29] MEDS: ALLOPURINOL 100 MG TAB PO SCH (10:24)
[2017-11-29] MEDS: AMIODARONE HCL 200 MG TAB PO SCH (10:25)
[2017-11-29] MEDS: ERTAPENEM SOD INJ 0.5 GM in SODIUM CHL 0.9% 50 ML IV SCH (10:26)
[2017-11-29] MEDS: PANTOPRAZOLE 40 MG TAB PO SCH (10:34)
[2017-11-29 13:00] VITALS: BP 96/46
[2017-11-29 14:58] LABS: Basophils # (auto) 0.1 uL; Eosinophils # (auto) 0.2 uL; Hemoglobin 12.6 g/dL (12.2-16.2); Lymphocytes # (auto) 0.7 uL; Neutrophils # (auto) 4.3 uL; Nucleated Red Blood Cells % 0.6 %; Red Cell Distribution Width 19.1 % (11.8-14.3)
[2017-11-29 15:01] LABS: Basophils % (auto) 0.9 % (0.0-2.0); Eosinophils % (auto) 3.7 % (0.0-7.0); Hematocrit 38.6 % (36.0-46.0); Lymphocytes % (auto) 11.6 % (10.0-50.0); Mean Corpuscular Hemoglobin 35.9 pg (28.0-32.0); Mean Corpuscular Hgb Conc. 32.8 g/dL (32.0-36.0); Mean Corpuscular Volume 109.5 fL (80.0-100.0); Monocytes # (auto) 0.9 uL; Monocytes % (auto) 14.5 % (0.0-12.0); Neutrophils % (auto) 69.3 % (37.0-80.0); Platelet Count (auto) 137 10^3/uL (140-450); Red Blood Cells 3.53 10^6/uL (4.0-5.20); White Blood Cell 6.2 10^3/uL (4.4-10.8)
[2017-11-29 15:12] LABS: Alanine Aminotransferase 15 U/L (13-56); Albumin 2.6 g/dL (3.4-5.0); Anion Gap 9 (5-15); Aspartate Aminotransferase 20 U/L (15-37); BUN/Creatinine Ratio 25.2; Blood Urea Nitrogen 78 mg/dL (7-18); Calcium 7.5 mg/dL (8.5-10.1); Carbon Dioxide 23 mmol/L (21-32); Chloride 112 mmol/L (98-107); GFR African American 19 mL/min; GFR Non-African American 15 mL/min; Glucose 203 mg/dL (74-106); Potassium 4.3 mmol/L (3.5-5.1); Sodium 144 mmol/L (136-145)
[2017-11-29 15:15] LABS: Alkaline Phosphatase 85 U/L (45-117); Bilirubin, Total 0.6 mg/dL (0.2-1.0); Total Protein 5.7 g/dL (6.4-8.2)
[2017-11-29 15:18] LABS: INR 2.51 (0.9-1.15); Prothrombin Time 25.5 sec (9.27-12.13)
[2017-11-29] MEDS: HYDROcodone-ACET 5/325MG TAB PO PRN (15:48)
[2017-11-29 17:00] VITALS: BP 98/45
[2017-11-29] MEDS ORDERED: WARFARIN SODIUM 1 MG TAB PO ONE (17:15)
[2017-11-29] MEDS: ATORVASTATIN 20 MG TAB PO SCH (21:22)
[2017-11-29] MEDS: TEMAZEPAM 15 MG CAP PO PRN (21:25)
[2017-11-29 22:00] VITALS: BP 117/30
[2017-11-30] VITALS (7 sets, daily range): BP systolic 93–120; BP diastolic 27–51
[2017-11-30] MEDS: SODIUM BICARBONATE 650 MG TAB PO SCH ×3 (05:53→21:37)
[2017-11-30] MEDS: LEVOTHYROXINE SODIUM 25 MCG TAB PO SCH (05:53)
[2017-11-30 06:00] LABS: Basophils # (auto) 0.1 uL; Eosinophils # (auto) 0.2 uL; Hematocrit 37.6 % (36.0-46.0); Monocytes # (auto) 0.7 uL; Nucleated Red Blood Cells % 0.4 %; Red Blood Cells 3.46 10^6/uL (4.0-5.20)
[2017-11-30 06:03] LABS: Basophils % (auto) 1.1 % (0.0-2.0); Eosinophils % (auto) 4.6 % (0.0-7.0); Hemoglobin 12.3 g/dL (12.2-16.2); Lymphocytes # (auto) 0.8 uL; Lymphocytes % (auto) 14.9 % (10.0-50.0); Mean Corpuscular Hemoglobin 35.5 pg (28.0-32.0); Mean Corpuscular Hgb Conc. 32.7 g/dL (32.0-36.0); Mean Corpuscular Volume 108.6 fL (80.0-100.0); Neutrophils # (auto) 3.4 uL; Neutrophils % (auto) 66.4 % (37.0-80.0); Platelet Count (auto) 127 10^3/uL (140-450); Red Cell Distribution Width 18.6 % (11.8-14.3); White Blood Cell 5.1 10^3/uL (4.4-10.8)
[2017-11-30 06:12] LABS: INR 2.31 (0.9-1.15); Prothrombin Time 23.6 sec (9.27-12.13)
[2017-11-30 06:29] LABS: Potassium 4.1 mmol/L (3.5-5.1)
[2017-11-30 06:41] LABS: Albumin 2.6 g/dL (3.4-5.0); BUN/Creatinine Ratio 27.8; Calcium 8.1 mg/dL (8.5-10.1); Total Protein 5.4 g/dL (6.4-8.2)
[2017-11-30 06:57] LABS: Bilirubin, Total 0.7 mg/dL (0.2-1.0)
[2017-11-30] MEDS: ERTAPENEM SOD INJ 0.5 GM in SODIUM CHL 0.9% 50 ML IV SCH (09:36)
[2017-11-30] MEDS: ALLOPURINOL 100 MG TAB PO SCH (09:36)
[2017-11-30] MEDS: AMIODARONE HCL 200 MG TAB PO SCH (09:37)
[2017-11-30] MEDS: PANTOPRAZOLE 40 MG TAB PO SCH (09:37)
[2017-11-30] MEDS: ASPirin-EC 81 mg tab PO SCH (09:37)
[2017-11-30] MEDS: METOPROLOL SUCCINATE XL 50 MG TAB PO SCH (09:41)
[2017-11-30] MEDS: FUROSEMIDE 40 MG/4 ML VIAL IV SCH (09:41)
[2017-11-30] MEDS: NITROGLYCERIN 0.2MG/HR TOPICAL PATCH TD SCH (09:42)
[2017-11-30] MEDS ORDERED: guaiFENesin-DM 100/10mg/5ml SYR PO PRN (11:00)
[2017-11-30] MEDS ORDERED: ALBUTEROL SULF 2.5 MG/0.5ML(0.5%) NEB SOLN NEB PRN (11:00)
[2017-11-30] MEDS: HYDROcodone-ACET 5/325MG TAB PO PRN (16:03)
[2017-11-30] MEDS ORDERED: WARFARIN SODIUM 1 MG TAB PO ONE (17:00)
[2017-11-30] MEDS: ATORVASTATIN 20 MG TAB PO SCH (21:38)
[2017-11-30] MEDS: TEMAZEPAM 15 MG CAP PO PRN (21:38)
[2017-12-01 05:05] VITALS: BP 91/35
[2017-12-01 06:04] LABS: INR 2.6 (0.9-1.15); Prothrombin Time 26.4 sec (9.27-12.13)
[2017-12-01] MEDS: LEVOTHYROXINE SODIUM 25 MCG TAB PO SCH (06:49)
[2017-12-01] MEDS: SODIUM BICARBONATE 650 MG TAB PO SCH (06:50)
[2017-12-01 09:13] VITALS: BP 130/69
[2017-12-01 09:41] VITALS: BP 91/35
[2017-12-01] MEDS: ERTAPENEM SOD INJ 0.5 GM in SODIUM CHL 0.9% 50 ML IV SCH (10:11)
[2017-12-01] MEDS: ALLOPURINOL 100 MG TAB PO SCH (10:58)
[2017-12-01] MEDS: ASPirin-EC 81 mg tab PO SCH (10:58)
[2017-12-01] MEDS: NITROGLYCERIN 0.2MG/HR TOPICAL PATCH TD SCH (10:58)
[2017-12-01] MEDS: METOPROLOL SUCCINATE XL 50 MG TAB PO SCH (10:59)
[2017-12-01] MEDS: PANTOPRAZOLE 40 MG TAB PO SCH (10:59)
[2017-12-01] MEDS: AMIODARONE HCL 200 MG TAB PO SCH (10:59)
[2017-12-01] MEDS: HYDROcodone-ACET 5/325MG TAB PO PRN (11:32)
== END 2017-12-01 11:45 | DRG 682 ==
LOC: ER 12:20 → TELE 12:21 → TELE-EAST 17:46
PROVIDERS: ADMIT Internal Medicine; ATTEND Family Medicine
PROC: 05HY33Z Insertion of Infusion Device into Upper Vein, Percutaneous Approach (ICD-10-PCS; principal; 2017-11-30)
DX: N17.0 Acute kidney failure with tubular necrosis (principal); I50.41 Acute combined systolic (congestive) and diastolic (congestive) heart failure; I13.2 Hypertensive heart and chronic kidney disease with heart failure and with stage 5 chronic kidney disease, or end stage renal disease; E87.2 Acidosis; N30.01 Acute cystitis with hematuria; N18.6 End stage renal disease; B96.20 Unspecified Escherichia coli [E. coli] as the cause of diseases classified elsewhere; I95.9 Hypotension, unspecified; K57.90 Diverticulosis of intestine, part unspecified, without perforation or abscess without bleeding; E03.9 Hypothyroidism, unspecified; E11.21 Type 2 diabetes mellitus with diabetic nephropathy; E11.22 Type 2 diabetes mellitus with diabetic chronic kidney disease; D64.9 Anemia, unspecified; Z16.12 Extended spectrum beta lactamase (ESBL) resistance; I25.10 Atherosclerotic heart disease of native coronary artery without angina pectoris; I48.2 Chronic atrial fibrillation; M10.9 Gout, unspecified; Z87.440 Personal history of urinary (tract) infections; Z90.710 Acquired absence of both cervix and uterus; Z79.01 Long term (current) use of anticoagulants; Z95.1 Presence of aortocoronary bypass graft; Z95.2 Presence of prosthetic heart valve; Z95.810 Presence of automatic (implantable) cardiac defibrillator; Z88.5 Allergy status to narcotic agent; Z88.0 Allergy status to penicillin; Z88.2 Allergy status to sulfonamides; Z88.1 Allergy status to other antibiotic agents; Z88.8 Allergy status to other drugs, medicaments and biological substances; Z71.89 Other specified counseling
CPT/HCPCS: 36415; 71045; 71046; 80048; 80053; 81001; 82570; 83605; 83735; 83880; 84100; 84156; 84300; 84484; 84550; 85025; 85610; 85730; 87040; 87081; 87086; 87088; 87186; 94640; 94761; 96361; 96374; J0696; J1335; J2543